=== PATIENT | female | born 1960 | race Caucasian/White ===

== ENCOUNTER 2017-11-19 13:20 | Emergency (ER) | payer OTHER, SELFPAY ==
[2017-11-19 13:29] VITALS: BP 146/91; PULSE 77; RESP 20; TEMP 36.9; O2SAT 96; BMI 30.2
--- NOTE | 2017-11-19 13:31 | RAD_ITS ---
STUDY: X-RAY CHEST REASON FOR EXAM: Female, 57 years old. Cough. Acute onset of chest pain. TECHNIQUE: Single AP portable view of the chest. COMPARISON: Comparison is made with prior study dated September 28, 2015. FINDINGS: EKG electrodes are seen. Hyperinflation. The lungs are clear. There is no demonstrated pleural abnormality. Normal size heart. Normal mediastinum and alma. Normal visualized pulmonary arteries. Normal visualized aortic arch and descending thoracic aorta. Normal visualized thoracic spine. Normal visualized ribs, clavicles, and shoulders. There is no demonstrated abnormality of the visualized soft tissue structures of the upper abdomen. RAD/Chest 1 View (Portable) IMPRESSION: Normal x-ray examination of the chest. Electronically Signed: Josh Wilcox MD at 14:14 EST Tel [phone], Service support ,
--- NOTE | 2017-11-19 13:32 | EKG12_ITS ---
Test Reason : CP Blood Pressure : / mmHG Vent. Rate : 088 BPM Atrial Rate : 088 BPM P-R Int : 150 ms QRS Dur : 082 ms QT Int : 354 ms P-R-T Axes : 068 002 071 degrees QTc Int : 428 ms Normal sinus rhythm Normal ECG Confirmed by NICOLE JACINTO, CIRO ([id number]), assistant film editor LATOSHA DIETRICH ([id number]) on 11/22/2017 11:18:00 AM Referred By: Confirmed By:CIRO RIVERA MD
[2017-11-19 13:47] VITALS: BP 140/92; PULSE 79; RESP 19; O2SAT 94
--- NOTE | 2017-11-19 14:22 | ED.VISSUMM ---
- ER Visit Summary Date of Service: 11/19/17 Chief Complaint: Chest pain 1-1/2 hour prior to presentation History of Present Illness: The patient is a 57 F [place] with midsternal discomfort scribed is sharp tight sensation that started at rest. She has had a cough for 1-1/2 weeks to 2 weeks. She does report increased pain with coughing. She denies any fever, chills night sweats. She denies any ocular, visual auditory symptoms. She denies any orthopnea or PND. She denies abdominal pain, nausea, vomiting or diarrhea. She denies any urologic symptoms. She denies mild arthralgias. She complains of weakness. Physical Examination: Vital signs are marked for slight elevation blood pressure 140/92. HEENT exam is unremarkable. She does have reproducible anterior chest pain left greater than right. No skin lesions are noted. Lungs are clear to auscultation with good mirror bilateral. Heart is regular without murmur, gallop or rub. Abdomen is soft nontender. Surgical scars are noted secondary to appendectomy cholecystectomy. There is no asymmetry, swelling, discoloration, leg vein distention, palpable cords or tenderness along the distribution of the deep venous system. She is alert oriented ?3. Test Results: EKG was ordered per nurse protocol prior to me seeing the patient. The EKG is normal with a rate of 88. Chest x-ray reveals normal cardiac silhouette, mediastinum, lung parenchyma and bony structures. Emergency Department Course and Treatment: Chest x-ray is obtained since she has a cough and pleuritic chest pain. EKG was ordered per nurse protocol. Treatment Plan: She has reproducible pain with a pleuritic component will treat with NSAIDs since there is no contraindication and she has no allergies. Disposition: Discharge to home Impression: 1. Bronchitis 2. Pleuritic chest pain 3. History of COPD 4. History of hypothyroidism 5. History of depression This note was generated with [employer] dictation software. It may contain incorrect words, spelling, and punctuation that were not noted in review of the chart prior to signing ED Disposition - Plan for ED Patient: Disposition: Home or Assisted Living Chief Complaint: Chest Pain Instructions: ED Chest Pain Pleurisy Referrals: Wyatt Carolina MD [Primary Care Provider] - 3-5 Days Additional Instructions: Take 4 Advil every 8 hours or 2 Aleve every 12 hours for the next 3-5 days.
[2017-11-19 14:28] VITALS: BP 126/82; PULSE 72; RESP 13; O2SAT 97
[2017-11-19 14:39] VITALS: BP 125/82; PULSE 71; RESP 16; O2SAT 98
== END 2017-11-19 14:40 | disposition home or self-care (01) ==
PROVIDERS: Emergency Provider Emergency Medicine; Family Provider Family Medicine; PCP Family Medicine
DX: J40 Bronchitis, not specified as acute or chronic (principal); R07.81 Pleurodynia; J44.9 Chronic obstructive pulmonary disease, unspecified; E03.9 Hypothyroidism, unspecified; F32.9 Major depressive disorder, single episode, unspecified; Z72.0 Tobacco use; R03.0 Elevated blood-pressure reading, without diagnosis of hypertension; Z79.899 Other long term (current) drug therapy
CPT/HCPCS: 71045; 93005; 99283

== ENCOUNTER → 2017-12-11 16:26 | Outpatient (CLI) | payer OTHER, SELFPAY ==
--- NOTE | 2017-12-11 16:28 | RAD_ITS ---
STUDY: X-RAY - CERVICAL SPINE REASON FOR EXAM: Female, 57 years old. Pain. Recent fall. Previous surgery. TECHNIQUE: 5 view(s) of the cervical spine were obtained. COMPARISON: None FINDINGS: Normal anterior atlantoaxial articulation. Normal odontoid process. There is straightening of the normal cervical lordosis. There is postsurgical fusion between C5-C6 and C7. There is multilevel degenerative disc disease. There is multi-level endplate spondylosis. There is mild multi-level osseous foraminal stenosis. The soft tissue structures are unremarkable. RAD/Cerv Spine 4 or 5 Views IMPRESSION: No acute abnormality. Degenerative and postsurgical changes. Electronically Signed: Yves Sims MD at 14:39 EST , Service support ,
== END ==
PROVIDERS: Family Provider Family Medicine; PCP Family Medicine; Visit Provider Family Medicine
DX: S13.9XXA Sprain of joints and ligaments of unspecified parts of neck, initial encounter (principal); X58.XXXA Exposure to other specified factors, initial encounter; Y93.9 Activity, unspecified; Y92.9 Unspecified place or not applicable; Y99.9 Unspecified external cause status
CPT/HCPCS: 72050

== ENCOUNTER → 2018-07-09 10:41 | Outpatient (CLI) | payer OTHER, SELFPAY ==
[2018-07-09 13:22] LABS: Absolute Lymphocyte Count 2.98 X10^3/ul (0.83-4.51); Absolute Neutrophil Count 3.3 X10^3/uL (2.0-7.7); Basophil# 0.02 X10^3/uL; Basophil% 0.3 % (0-1); Eosinophil# 0.18 X10^3/uL; Eosinophils% 2.5 % (0-5); Hematocrit 43.9 % (37-47); Hemoglobin 13.9 g/dl (12.0-15.0); Lymphocyte # 2.98 X10^3/ul (4.0); Lymphocyte % 41.6 % (19-41); Mean Corp Hgb Conc 31.7 g/gl (32-36); Mean Corpuscular Volume 91.5 fL (81-99); Mean Platelet Vol. 10.8 fl (6.2-12.0); Monocyte# 0.66 X10^3/uL; Monocyte% 9.2 % (0-10); Neutrophil # 3.32 X10^3/uL (2.7-7.7); Neutrophil % 46.4 % (47-70); Platelet Count 238 K/mm3 (150-450); RBC Distribution Width CV 14.5 % (11.6-14.6); White Blood Count 7.2 K/mm3 (4.4-11.0)
[2018-07-09 13:25] LABS: POSITIVE COUNT NO; POSITIVE DIFFERENTIAL NO; POSITIVE MORPHOLOGY NO
[2018-07-09 13:42] LABS: Erythrocyte Sedimentation Rate 21 mm/hr (0-30)
[2018-07-09 13:44] LABS: AST(SGOT) 31 U/L (15-37); Alanine Aminotransfer ALT/SGPT 37 U/L (13-56); Alkaline Phosphatase 122 U/L (45-117); Anion Gap 8 (5-15); BUN 12 mg/dL (7-18); BUN/Creat Ratio 16.1 RATIO (10-20); CRP 4.34 mg/L (0.0-3.0); Calcium,Total 9.2 mg/dL (8.5-10.1); Chloride 105 mmol/L (98-107); Creatinine, Serum 0.74 mg/dL (0.55-1.02); EST Glomerular Filtration Rate 86 mL/min (>60); Est Glom Filt Rate - Afr Amer 103 mL/min (>60); Ferritin 68 ng/mL (8-252); Globulin 3.9 g/dL (2.2-4.2); Glucose 91 mg/dL (74-106); Magnesium 2.3 mg/dL (1.6-2.6); Potassium 4.4 mmol/L (3.5-5.1); Protein, Total 7.9 g/dL (6.4-8.2); Sodium Level 139 mmol/L (136-145); T4 Free Direct 0.84 ng/dL (0.76-1.46)
[2018-07-10 10:26] LABS: Free T3 2.3 pg/mL (2.18-3.98)
== END ==
PROVIDERS: Family Provider Family Medicine; PCP Family Medicine; Visit Provider Family Medicine
DX: E03.9 Hypothyroidism, unspecified (principal); G25.81 Restless legs syndrome
CPT/HCPCS: 36415; 80053; 82728; 83735; 84439; 84443; 84481; 85025; 85652; 86140

== ENCOUNTER → 2018-08-07 15:48 | Outpatient (CLI) | payer OTHER, SELFPAY ==
[2018-08-07 18:05] LABS: Free T3 2.5 pg/mL (2.18-3.98); T4 Free Direct 1.54 ng/dL (0.76-1.46); Thyroid Stim Hormone (TSH) 2.06 uIU/mL (0.358-3.74)
== END ==
PROVIDERS: Family Provider Family Medicine; PCP Family Medicine; Visit Provider Family Medicine
DX: E03.9 Hypothyroidism, unspecified (principal)
CPT/HCPCS: 36415; 84439; 84443; 84481

== ENCOUNTER → 2019-02-12 12:42 | Outpatient (CLI) | payer OTHER, SELFPAY ==
--- NOTE | 2019-02-12 12:44 | BI_ITS ---
MAMMOGRAPHY - BILATERAL SCREENING 3-D TOMOSYNTHESIS REASON FOR EXAM: Female, 58 years old. Bilateral Screening 3-D tomosynthesis PERTINENT HISTORY: No significant family history. TECHNIQUE: 2-D mammograms and 3-D Tomosynthesis of the breast (s) were performed. CAD was performed. COMPARISON: September 09, 2013. FINDINGS: The breast composition is heterogeneously dense. Scattered benign calcifications are seen. No dense spiculated masses or suspicious microcalcifications are identified. No architectural distortion is identified. There is no skin thickening or retraction. There has been no significant change since the prior study. BI/SCREENING MAMM (CAD), BILAT IMPRESSION: No mammographic signs of malignancy. Routine yearly mammograms recommended. ASSESSMENT CATEGORY: BIRADS Category 1: Negative. A letter regarding these results will be sent to the patient by the facility within 30 days. FOLLOW UP RECOMMENDATION: Yearly follow up mammogram recommended. (A) Approximately 10% of breast cancers are not detected by mammography. A normal mammogram should not delay biopsy of a clinically suspicious abnormality. Electronically Signed: Lencho Tafoya MD at 15:13 EDT , Service support ,
== END ==
PROVIDERS: Family Provider Family Medicine; PCP Family Medicine; Visit Provider Family Medicine
DX: Z12.31 Encounter for screening mammogram for malignant neoplasm of breast (principal)
CPT/HCPCS: 77063; 77067

== ENCOUNTER → 2019-03-18 10:05 | Outpatient (CLI) | payer OTHER, SELFPAY ==
--- NOTE | 2019-03-18 10:10 | BD_ITS ---
STUDY: DUAL ENERGY X-RAY ABSORPTIOMETRY / DXA REASON FOR EXAM: Female, 58 years old. The patient is postmenopausal. Loss of height. TECHNIQUE: Bone Mineral Density (BMD) measurements of lumbar spine and bilateral hips were obtained. COMPARISON: None. FINDINGS: Lumbar Spine (L1-L4): g/cm2 (1.165) / T-score (0.0) / Z-score (1.0) Findings are suggestive of normal bone density with a low fracture risk. Left Femur Total: g/cm2 (1.039) / T-score (0.3) / Z-score (1.0) Left Femoral Neck: g/cm2 (0.957) / T-score (-0.6) / Z-score (0.5) Right Femur Total: g/cm2 (1.075) / T-score (0.5) / Z-score (1.3) Right Femoral Neck: g/cm2 (0.932) / T-score (-0.8) / Z-score (0.4) BD/Dexa Bone Density Study IMPRESSION: The patient is considered normal as outlined below according to World Haja Organization (WHO) criteria with a low fracture risk. Reference Information: The T-score is the number of standard deviations above or below the standard which is normal for young adults at their peak bone mineral density. The World Health Organization (WHO) interprets the T-scores as follows: Above -1 Normal bone density Between -1 and -2.5 Osteopenia Equal to / or below -2.5 Osteoporosis As a practical clinical guideline, osteopenia may be graded as follows: Mild -1 through -1.5 Moderate -1.6 through -2.0 Severe -2.1 through -2.4 The Z-score is the number of standard deviations above or below age-matched controls. A Z-score of less than -1.5 would be considered abnormal. References: 1. NIH Osteoporosis and Related Bone Diseases http://www.osteo.org 2. International Society for Clinical Densitometry http://www.iscd.org 3. National Osteoporosis Foundation http://www.nof.org Electronically Signed: Josh Wilcox, at 11:30 EDT , Service support ,
== END ==
PROVIDERS: Family Provider Family Medicine; PCP Family Medicine; Referring Provider Nurse Practitioner Adult Health; Visit Provider Nurse Practitioner Adult Health
DX: Z78.0 Asymptomatic menopausal state (principal)
CPT/HCPCS: 77080

== ENCOUNTER → 2019-05-14 09:20 | Outpatient (CLI) | payer OTHER, SELFPAY ==
[2019-05-14 10:26] LABS: Absolute Lymphocyte Count 2.96 X10^3/uL (0.83-4.51); Absolute Neutrophil Count 3.7 X10^3/uL (2.0-7.7); Basophil# 0.03 X10^3/uL; Basophil% 0.4 % (0-1); Eosinophil# 0.17 X10^3/uL; Eosinophils% 2.2 % (0-5); Hematocrit 44.9 % (37-47); Hemoglobin 14.5 g/dL (12.0-15.0); Lymphocyte # 2.96 X10^3/ul (4.0); Lymphocyte % 39.1 % (19-41); Mean Corp Hgb Conc 32.3 g/dL (32-36); Mean Corpuscular Hgb 29.2 pg (27.0-32.0); Mean Corpuscular Volume 90.3 fL (81-99); Monocyte# 0.68 X10^3/uL; NRBC Flagged by Analyzer 0 % (0-5); Neutrophil # 3.72 X10^3/uL (2.7-7.7); Platelet Count 250 K/mm3 (150-450); RBC Distribution Width CV 14.1 % (11.6-14.6); RBC Distribution Width SD 46.9 fl (35.1-43.9); Red Blood Count 4.97 M/mm3 (4.2-5.4); White Blood Count 7.6 K/mm3 (4.4-11.0)
[2019-05-14 11:04] LABS: ALB/GLOB Ratio 1.4 RATIO (0.9-2.4); AST(SGOT) 22 U/L (15-37); Alanine Aminotransfer ALT/SGPT 30 U/L (13-56); Albumin, Serum 4.3 g/dL (3.2-5.0); Alkaline Phosphatase 119 U/L (45-117); Anion Gap 7 (5-15); BUN 13 mg/dL (7-18); BUN/Creat Ratio 19.1 RATIO (10-20); Calcium,Total 9.3 mg/dL (8.5-10.1); Chloride 105 mmol/L (98-107); Creatinine, Serum 0.68 mg/dL (0.55-1.02); EST Glomerular Filtration Rate 95 mL/min (>60); Est Glom Filt Rate - Afr Amer 115 mL/min (>60); Globulin 3.1 g/dL (2.2-4.2); Glucose 96 mg/dL (74-106); Potassium 4.5 mmol/L (3.5-5.1); Protein, Total 7.4 g/dL (6.4-8.2); Sodium Level 138 mmol/L (136-145); T4 Free Direct 1.13 ng/dL (0.76-1.46); Thyroid Stim Hormone (TSH) 4.46 uIU/mL (0.358-3.74)
== END ==
PROVIDERS: Family Provider Family Medicine; PCP Family Medicine; Referring Provider Family Medicine; Visit Provider Family Medicine
DX: M79.7 Fibromyalgia (principal); E03.9 Hypothyroidism, unspecified
CPT/HCPCS: 36415; 80053; 84439; 84443; 85025

== ENCOUNTER → 2020-09-21 13:00 | Outpatient (CLI) | payer OTHER, SELFPAY | PROVIDERS: PCP Family Medicine; Referring Provider Surgery; Visit Provider Surgery | DX: Z01.812 Encounter for preprocedural laboratory examination (principal); Z20.828 Contact with and (suspected) exposure to other viral communicable diseases | CPT/HCPCS: 87426; C9803 ==

== ENCOUNTER → 2021-06-17 11:43 | Outpatient (CLI) | payer OTHER, SELFPAY ==
[2021-06-17 15:22] LABS: Absolute Lymphocyte Count 2.96 X10^3/uL (0.83-4.51); Basophil# 0.03 X10^3/uL; Basophil% 0.4 % (0-1); Eosinophil# 0.17 X10^3/uL; Eosinophils% 2.5 % (0-5); Hematocrit 46.7 % (37-47); Hemoglobin 14.7 g/dL (12.0-15.0); Lymphocyte # 2.96 X10^3/ul (0.83-4.51); Lymphocyte % 43.3 % (19-41); Mean Corp Hgb Conc 31.5 g/dL (32-36); Mean Corpuscular Hgb 28.7 pg (27.0-32.0); Mean Platelet Vol. 11.2 fl (6.2-12.0); Monocyte# 0.62 X10^3/uL; Monocyte% 9.1 % (0-10); NRBC Flagged by Analyzer 0 % (0-5); Neutrophil # 3.03 X10^3/uL (2.7-7.7); Neutrophil % 44.4 % (47-70); Platelet Count 261 K/mm3 (150-450); RBC Distribution Width CV 13.1 % (11.6-14.6); RBC Distribution Width SD 44.4 fl (35.1-43.9); Red Blood Count 5.13 M/mm3 (4.2-5.4); White Blood Count 6.8 K/mm3 (4.4-11.0)
[2021-06-17 16:15] LABS: ALB/GLOB Ratio 1.2 RATIO (0.9-2.4); AST(SGOT) 23 U/L (15-37); Alanine Aminotransfer ALT/SGPT 38 U/L (13-56); Albumin, Serum 4.1 g/dL (3.2-5.0); Alkaline Phosphatase 134 U/L (45-117); Anion Gap 6 (5-15); BUN 13 mg/dL (7-18); Chloride 107 mmol/L (98-107); Cholesterol 281 mg/dL (200); Creatinine, Serum 0.68 mg/dL (0.55-1.02); EST Glomerular Filtration Rate 93 mL/min (>60); Est Glom Filt Rate - Afr Amer 113 mL/min (>60); Globulin 3.3 g/dL (2.2-4.2); Glucose 104 mg/dL (74-106); High Density Lipoprotein 57 mg/dL; Potassium 4.1 mmol/L (3.5-5.1); Protein, Total 7.4 g/dL (6.4-8.2); Sodium Level 139 mmol/L (136-145); Thyroid Stim Hormone (TSH) 0.01 uIU/mL (0.358-3.74); Triglycerides 138 mg/dL; Very Low Density Lipoprotein 28 mg/dL (5-40)
== END ==
PROVIDERS: PCP Internal Medicine; Referring Provider Internal Medicine; Visit Provider Internal Medicine
DX: E03.9 Hypothyroidism, unspecified (principal)
CPT/HCPCS: 36415; 80053; 80061; 84443; 85025

== ENCOUNTER 2021-11-28 11:58 | Outpatient (CLI) | payer OTHER, SELFPAY ==
--- NOTE | 2021-11-28 12:01 | BI_ITS ---
MAMMOGRAPHY - BILATERAL SCREENING REASON FOR EXAM: Female, 61 years old. Routine annual screening examination. PERTINENT HISTORY: Aunt with breast cancer. TECHNIQUE: Digital bilateral breast marie (3D mammographic acquisition) in the CC and MLO projections. 2-D mediolateral oblique (MLO) and craniocaudad (CC) views of both breasts were obtained. CAD: Full Field Digital Mammography with Computer Added Detection was performed. COMPARISON: Comparison is made with prior study dated 02/12/2019 and 09/09/2013. FINDINGS: Breast Composition: There are scattered areas of fibroglandular density. There are no dominant masses or suspicious calcifications. No other significant abnormalities are identified. There has been no significant change since the prior study. BI/SCRN MAMM (CAD)W/MARIE BILAT IMPRESSION: Stable bilateral screening mammogram. Yearly follow-up mammogram recommended. (A) ASSESSMENT CATEGORY: BIRADS Category 1: Negative. A letter regarding these results will be sent to the patient by the facility within 30 days. Approximately 10% of breast cancers are not detected by mammography. A normal mammogram should not delay biopsy of a clinically suspicious abnormality. [id number] Electronically Signed: Josh Wilcox MD at 14:39 EST ,
[2021-12-02 20:44] LABS: HPV APTIMA, High Risk Positive (Negative)
== END 2021-11-28 23:59 | disposition home or self-care (01) ==
PROVIDERS: PCP Internal Medicine; Referring Provider Obstetrics & Gynecology; Visit Provider Obstetrics & Gynecology
DX: Z12.31 Encounter for screening mammogram for malignant neoplasm of breast (principal); Z12.4 Encounter for screening for malignant neoplasm of cervix
CPT/HCPCS: 77063; 77067; 87624; 88175; G0145

== ENCOUNTER 2021-12-16 14:17 | Outpatient (CLI) | payer OTHER, SELFPAY ==
[2021-12-16 16:10] LABS: Cholesterol 286 mg/dL (200); High Density Lipoprotein 60 mg/dL; Thyroid Stim Hormone (TSH) 1.24 uIU/mL (0.358-3.74); Triglycerides 125 mg/dL; Very Low Density Lipoprotein 25 mg/dL (5-40)
== END 2021-12-16 23:59 | disposition home or self-care (01) ==
PROVIDERS: PCP Internal Medicine; Referring Provider Internal Medicine; Visit Provider Internal Medicine
DX: E78.5 Hyperlipidemia, unspecified (principal); E03.9 Hypothyroidism, unspecified
CPT/HCPCS: 36415; 80061; 84443

== ENCOUNTER → 2022-11-03 | Outpatient (CLI) | payer OTHER, SELFPAY ==
[2022-11-03 12:29] LABS: Absolute Lymphocyte Count 3.08 X10^3/uL (0.83-4.51); Basophil# 0.04 X10^3/uL; Basophil% 0.4 % (0-1); Eosinophil# 0.24 X10^3/uL; Eosinophils% 2.6 % (0-5); Hematocrit 43.3 % (37-47); Hemoglobin 13.7 g/dL (12.0-15.0); Lymphocyte # 3.08 X10^3/ul (0.83-4.51); Lymphocyte % 33.7 % (19-41); Mean Corp Hgb Conc 31.6 g/dL (32-36); Mean Corpuscular Hgb 29.3 pg (27.0-32.0); Mean Corpuscular Volume 92.7 fL (81-99); Mean Platelet Vol. 11.1 fl (6.2-12.0); Monocyte# 0.74 X10^3/uL; Monocyte% 8.1 % (0-10); NRBC Flagged by Analyzer 0 % (0-5); Neutrophil # 5.01 X10^3/uL (2.7-7.7); Platelet Count 283 K/mm3 (150-450); RBC Distribution Width SD 51.6 fl (35.1-43.9); Red Blood Count 4.67 M/mm3 (4.2-5.4); White Blood Count 9.1 K/mm3 (4.4-11.0)
[2022-11-03 12:47] LABS: ALB/GLOB Ratio 1.2 RATIO (0.9-2.4); AST(SGOT) 19 U/L (15-37); Alanine Aminotransfer ALT/SGPT 27 U/L (13-56); Alkaline Phosphatase 101 U/L (45-117); Anion Gap 4 (5-15); BUN 18 mg/dL (7-18); BUN/Creat Ratio 23.2 RATIO (10-20); Chloride 112 mmol/L (98-107); Cholesterol 336 mg/dL (200); Creatinine, Serum 0.78 mg/dL (0.55-1.02); EST Glomerular Filtration Rate 80 mL/min (>60); Est Glom Filt Rate - Afr Amer 97 mL/min (>60); Globulin 3.4 g/dL (2.2-4.2); Glucose 107 mg/dL (74-106); High Density Lipoprotein 61 mg/dL; Potassium 4.1 mmol/L (3.5-5.1); Protein, Total 7.4 g/dL (6.4-8.2); Sodium Level 139 mmol/L (136-145); Triglycerides 179 mg/dL; Very Low Density Lipoprotein 36 mg/dL (5-40)
== END | disposition home or self-care (01) ==
PROVIDERS: PCP Internal Medicine; Referring Provider Internal Medicine; Visit Provider Internal Medicine
DX: E78.2 Mixed hyperlipidemia (principal); E03.9 Hypothyroidism, unspecified
CPT/HCPCS: 36415; 80053; 80061; 84443; 85025

== ENCOUNTER → 2022-11-21 | Outpatient (CLI) | payer OTHER, SELFPAY ==
--- NOTE | 2022-11-21 12:00 | EKG12_ITS ---
Test Reason : PRE OP Blood Pressure : / mmHG Vent. Rate : 077 BPM Atrial Rate : 077 BPM P-R Int : 142 ms QRS Dur : 086 ms QT Int : 372 ms P-R-T Axes : -01 016 055 degrees QTc Int : 420 ms Normal sinus rhythm Normal ECG Confirmed by ZBIGNIEW JACINTO, JAGDISH ([id number]), pictures editor LEILANI MANUEL ([id number]) on 11/23/2022 10:19:43 AM Referred By: Jb Oneill Confirmed By:JAGDISH COY MD
== END | disposition home or self-care (01) ==
LOC: PSN 12:07
PROVIDERS: PCP Internal Medicine; Referring Provider Internal Medicine; Visit Provider Internal Medicine
DX: I10 Essential (primary) hypertension (principal)
CPT/HCPCS: 93005

== ENCOUNTER → 2022-12-06 | Outpatient (CLI) | payer OTHER, SELFPAY ==
[2022-12-06 16:33] LABS: ALB/GLOB Ratio 1.5 RATIO (0.9-2.4); AST(SGOT) 18 U/L (15-37); Alanine Aminotransfer ALT/SGPT 26 U/L (13-56); Albumin, Serum 4.1 g/dL (3.2-5.0); Alkaline Phosphatase 105 U/L (45-117); Anion Gap 7 (5-15); BUN 16 mg/dL (7-18); BUN/Creat Ratio 25.9 RATIO (10-20); Calcium,Total 8.8 mg/dL (8.5-10.1); Chloride 107 mmol/L (98-107); Creatinine, Serum 0.62 mg/dL (0.55-1.02); EST Glomerular Filtration Rate 104 mL/min (>60); Est Glom Filt Rate - Afr Amer 126 mL/min (>60); Globulin 2.8 g/dL (2.2-4.2); Glucose 106 mg/dL (74-106); Protein, Total 6.9 g/dL (6.4-8.2); Sodium Level 142 mmol/L (136-145); Thyroid Stim Hormone (TSH) 0.19 uIU/mL (0.358-3.74)
== END | disposition home or self-care (01) ==
PROVIDERS: PCP Internal Medicine; Referring Provider Internal Medicine; Visit Provider Internal Medicine
DX: E78.5 Hyperlipidemia, unspecified (principal); E03.9 Hypothyroidism, unspecified
CPT/HCPCS: 36415; 80053; 84443

== ENCOUNTER → 2022-12-21 | Outpatient (CLI) | payer OTHER, SELFPAY ==
[2022-12-29 14:15] LABS: HPV APTIMA, High Risk Negative (Negative)
== END | disposition home or self-care (01) ==
PROVIDERS: PCP Internal Medicine; Referring Provider Obstetrics & Gynecology; Visit Provider Obstetrics & Gynecology
DX: Z12.4 Encounter for screening for malignant neoplasm of cervix (principal)
CPT/HCPCS: 87624; 88175; G0145

== ENCOUNTER → 2023-01-26 | Outpatient (CLI) | payer OTHER, SELFPAY ==
[2023-01-26 13:46] LABS: ALB/GLOB Ratio 1.4 RATIO (0.9-2.4); AST(SGOT) 23 U/L (15-37); Alanine Aminotransfer ALT/SGPT 32 U/L (13-56); Albumin, Serum 4.1 g/dL (3.2-5.0); Alkaline Phosphatase 128 U/L (45-117); Anion Gap 8 (5-15); BUN 16 mg/dL (7-18); BUN/Creat Ratio 21.9 RATIO (10-20); Calcium,Total 9.4 mg/dL (8.5-10.1); Chloride 106 mmol/L (98-107); Cholesterol 194 mg/dL (200); Creatinine, Serum 0.73 mg/dL (0.55-1.02); EST Glomerular Filtration Rate 86 mL/min (>60); Est Glom Filt Rate - Afr Amer 104 mL/min (>60); Glucose 97 mg/dL (74-106); High Density Lipoprotein 59 mg/dL; Potassium 4.3 mmol/L (3.5-5.1); Protein, Total 7.1 g/dL (6.4-8.2); Sodium Level 139 mmol/L (136-145); Thyroid Stim Hormone (TSH) 0.05 uIU/mL (0.358-3.74); Triglycerides 126 mg/dL; Very Low Density Lipoprotein 25 mg/dL (5-40)
== END | disposition home or self-care (01) ==
LOC: BIMLAB 11:45
PROVIDERS: PCP Internal Medicine; Referring Provider Internal Medicine; Visit Provider Internal Medicine
DX: E78.5 Hyperlipidemia, unspecified (principal); E03.9 Hypothyroidism, unspecified
CPT/HCPCS: 36415; 80053; 80061; 84443

== ENCOUNTER → 2023-05-28 | Outpatient (CLI) | payer OTHER, SELFPAY ==
[2023-05-28 13:11] LABS: ALB/GLOB Ratio 1.4 RATIO (0.9-2.4); AST(SGOT) 20 U/L (15-37); Alanine Aminotransfer ALT/SGPT 33 U/L (13-56); Alkaline Phosphatase 118 U/L (45-117); Anion Gap 4 (5-15); BUN 12 mg/dL (7-18); BUN/Creat Ratio 18.7 RATIO (10-20); Calcium,Total 9.2 mg/dL (8.5-10.1); Chloride 108 mmol/L (98-107); Creatinine, Serum 0.64 mg/dL (0.55-1.02); EST Glomerular Filtration Rate 100 mL/min (>60); Est Glom Filt Rate - Afr Amer 120 mL/min (>60); Globulin 2.9 g/dL (2.2-4.2); Glucose 111 mg/dL (74-106); Potassium 4.1 mmol/L (3.5-5.1); Protein, Total 6.9 g/dL (6.4-8.2); Sodium Level 140 mmol/L (136-145); Thyroid Stim Hormone (TSH) 1.81 uIU/mL (0.358-3.74)
== END | disposition home or self-care (01) ==
LOC: BIMLAB 11:40
PROVIDERS: PCP Internal Medicine; Referring Provider Internal Medicine; Visit Provider Internal Medicine
DX: E03.9 Hypothyroidism, unspecified (principal)
CPT/HCPCS: 36415; 80053; 84443

== ENCOUNTER → 2024-03-25 | Outpatient (CLI) | payer OTHER, SELFPAY ==
[2024-03-25 18:03] LABS: Absolute Lymphocyte Count 3.94 X10^3/uL (0.83-4.51); Basophil# 0.05 X10^3/uL; Basophil% 0.6 % (0-1); Eosinophils% 2.2 % (0-5); Hematocrit 42.5 % (37-47); Hemoglobin 13.4 g/dL (12.0-15.0); Lymphocyte # 3.94 X10^3/ul (0.83-4.51); Lymphocyte % 44.1 % (19-41); Mean Corp Hgb Conc 31.5 g/dL (32-36); Mean Platelet Vol. 11.1 fl (6.2-12.0); Monocyte# 0.75 X10^3/uL; Monocyte% 8.4 % (0-10); NRBC Flagged by Analyzer 0 % (0-5); Neutrophil # 3.97 X10^3/uL (2.7-7.7); Neutrophil % 44.4 % (47-70); Platelet Count 247 K/mm3 (150-450); RBC Distribution Width CV 13.3 % (11.6-14.6); Red Blood Count 4.62 M/mm3 (4.2-5.4); White Blood Count 8.9 K/mm3 (4.4-11.0)
[2024-03-25 18:40] LABS: ALB/GLOB Ratio 1.2 RATIO (0.9-2.4); AST(SGOT) 24 U/L (15-37); Alanine Aminotransfer ALT/SGPT 33 U/L (13-56); Albumin, Serum 4.1 g/dL (3.2-5.0); Alkaline Phosphatase 130 U/L (45-117); Anion Gap 6 (5-15); BUN 13 mg/dL (7-18); BUN/Creat Ratio 18.4 RATIO (10-20); Calcium,Total 9.3 mg/dL (8.5-10.1); Chloride 106 mmol/L (98-107); Creatinine, Serum 0.71 mg/dL (0.55-1.02); EST Glomerular Filtration Rate 89 mL/min (>60); Est Glom Filt Rate - Afr Amer 108 mL/min (>60); Estradiol 15.1 pg/mL; Free T3 2.3 pg/mL (2.18-3.98); Globulin 3.3 g/dL (2.2-4.2); Glucose 90 mg/dL (74-106); Potassium 3.9 mmol/L (3.5-5.1); Protein, Total 7.4 g/dL (6.4-8.2); Sodium Level 137 mmol/L (136-145); T4 Free Direct 1.14 ng/dL (0.76-1.46); Thyroid Stim Hormone (TSH) 6.79 uIU/mL (0.358-3.74)
[2024-03-27 04:08] LABS: PROGESTERONE 0.2 ng/mL (.)
[2024-03-31 13:07] LABS: Testosterone, % Free 1.64 % (0.50-2.80); Testosterone, Free 0.05 ng/dL (0.10-0.85); Testosterone, Total 3 ng/dL (3-67)
== END | disposition home or self-care (01) ==
LOC: MTLAB 15:06
PROVIDERS: PCP Family Medicine; Referring Provider Family Medicine; Visit Provider Family Medicine
DX: E03.9 Hypothyroidism, unspecified (principal); R53.83 Other fatigue; E55.9 Vitamin D deficiency, unspecified; Z51.81 Encounter for therapeutic drug level monitoring
CPT/HCPCS: 36415; 80053; 82306; 82670; 84144; 84402; 84403; 84439; 84443; 84481; 85025

== ENCOUNTER → 2024-10-27 | Outpatient (CLI) | payer OTHER, SELFPAY ==
--- NOTE | 2024-10-27 13:50 | BI_ITS ---
MAMMOGRAPHY - BILATERAL SCREENING REASON FOR EXAM: Female, 64 years old. Routine annual screening examination. PERTINENT HISTORY: Aunt with breast cancer. TECHNIQUE: Digital bilateral breast marie (3D mammographic acquisition) in the CC and MLO projections. 2-D mediolateral oblique (MLO) and craniocaudad (CC) views of both breasts were obtained. CAD: Full Field Digital Mammography with Computer Added Detection was performed. COMPARISON: Comparison is made with prior study dated November 28, 2021 and February 12, 2019. FINDINGS: Breast Composition: There are scattered areas of fibroglandular density. There are no dominant masses or suspicious calcifications. No other significant abnormalities are identified. There has been no significant change since the prior study. BI/SCRN MAMM (CAD)W/MARIE BILAT IMPRESSION: Stable bilateral screening mammogram. Yearly follow-up mammogram recommended. (A) ASSESSMENT CATEGORY: BIRADS Category 1: Negative. A letter regarding these results will be sent to the patient by the facility within 30 days. Approximately 10% of breast cancers are not detected by mammography. A normal mammogram should not delay biopsy of a clinically suspicious abnormality. [id number] Electronically Signed: Josh Wilcox MD at 10:35 EST ,
== END | disposition home or self-care (01) ==
PROVIDERS: PCP Family Medicine; Referring Provider Family Medicine; Visit Provider Family Medicine
DX: Z12.31 Encounter for screening mammogram for malignant neoplasm of breast (principal)
CPT/HCPCS: 77063; 77067

== ENCOUNTER → 2025-03-30 | Outpatient (CLI) | payer BC, SELFPAY ==
[2025-03-30 15:46] LABS: Absolute Lymphocyte Count 3.49 X10^3/uL (0.83-4.51); Absolute Neutrophil Count 4.1 X10^3/uL (2.0-7.7); Basophil# 0.05 X10^3/uL; Basophil% 0.6 % (0-1); Eosinophil# 0.31 X10^3/uL; Eosinophils% 3.5 % (0-5); Hematocrit 39.4 % (37-47); Hemoglobin 13.1 g/dL (12.0-15.0); Lymphocyte # 3.49 X10^3/ul (0.83-4.51); Lymphocyte % 39.2 % (19-41); Mean Corp Hgb Conc 33.2 g/dL (32-36); Mean Corpuscular Hgb 29.6 pg (27.0-32.0); Mean Corpuscular Volume 88.9 fL (81-99); Mean Platelet Vol. 11.5 fl (6.2-12.0); Monocyte# 0.95 X10^3/uL; Monocyte% 10.7 % (0-10); NRBC Flagged by Analyzer 0 % (0-5); Neutrophil # 4.06 X10^3/uL (2.7-7.7); Neutrophil % 45.6 % (47-70); Platelet Count 253 K/mm3 (150-450); RBC Distribution Width CV 13.2 % (11.6-14.6); Red Blood Count 4.43 M/mm3 (4.2-5.4); White Blood Count 8.9 K/mm3 (4.4-11.0)
[2025-03-30 15:48] LABS: Erythrocyte Sedimentation Rate 6 mm/hr (0-30)
[2025-03-30 16:07] LABS: ALB/GLOB Ratio 1.8 RATIO (0.9-2.4); AST(SGOT) 25 U/L (<=31); Alanine Aminotransfer ALT/SGPT 24 U/L (<=34); Albumin, Serum 4.4 g/dL (3.4-4.8); Alkaline Phosphatase 124 U/L (35-104); Anion Gap 11 (5-15); BUN 12 mg/dL (4-19); BUN/Creat Ratio 17.5 RATIO (10-20); Calcium,Total 9.5 mg/dL (7.6-11.0); Carbon Dioxide 24.1 mmol/L (21.0-32.0); Chloride 106 mmol/L (98-108); Creatinine, Serum 0.67 mg/dL (0.70-1.20); EST Glomerular Filtration Rate 98 (>60); Free T3 2.8 pg/mL (2.18-3.98); Globulin 2.4 g/dL (2.2-4.2); Glucose 106 mg/dL (70-99); Protein, Total 6.7 g/dL (5.9-8.4); Sodium Level 142 mmol/L (133-145); Thyroid Stim Hormone (TSH) 0.528 uIU/mL (0.300-4.200); Total Bilirubin 0.19 mg/dL (0.00-1.30); Vitamin D,25 Hydroxy 31.3 ng/mL (30-100)
[2025-03-30 16:08] LABS: CRP < 3.00 mg/L (0.0-3.0)
--- OUTSIDE RECORDS SUMMARY | 2025-03-30 22:59 | XMS RPT_ITS | CCD ---
Author Organization [facility] Care Team Providers Care Hand Tool Lapper Name Role Phone Dr. Jb Oneill Primary Care Provider [phone] Dr. Jb Oneill Attending Provider [phone] Jb Oneill Referring Provider [phone] Malys, Gayathri Primary Care Unavailable Skruck, Anat Attending Unavailable Malys, Gayathri Primary Care Unavailable Skruck, Anat Attending Unavailable Malys, Gayathri Primary Care Unavailable Skruck, Anat Attending Unavailable Malys, Gayathri Primary Care Unavailable SeeseMerrick L Attending Unavailable Malys, Gayathri Primary Care Unavailable Skruck, Anat Attending Unavailable Malys, Gayathri Primary Care Unavailable Skruck, Anat Attending Unavailable Malys, Gayathri Primary Care Unavailable Seese Merrick L Attending Unavailable Malys, Gayathri Primary Care Unavailable Skruck, Anat Attending Unavailable Malys, Gayathri Primary Care Unavailable Skruck, Anat Attending Unavailable Malys, Gayathri Primary Care Unavailable Seese Merrick L Attending Unavailable Malys, Gayathri Primary Care Unavailable Skruck, Anat Attending Unavailable Malys, Gayathri Primary Care Unavailable Seese, Merrick L Attending Unavailable Malys, Gayathri Primary Care Unavailable Skruck, Anat Attending Unavailable Malys, Gayathri Primary Care Unavailable Seese, Merrick L Attending Unavailable Malys, Gayathri Primary Care Unavailable Seese, Merrick L Attending Unavailable Malys, Gayathri Primary Care Unavailable Skruck, Anat Attending Unavailable Malys, Gayathri Primary Care Unavailable Skruck, Anat Attending Unavailable Malys, Gayathri Primary Care Unavailable Malys, Gayathri Attending Unavailable Malys, Gayathri Referring Unavailable Malys, Gayathri Primary Care Unavailable Malys, Gayathri Attending Unavailable Malys, Gayathri Referring Unavailable Malys, Gayathri Primary Care Unavailable Anat Hendrickson Attending Unavailable Allergies Allergy Classification Reported Allergen(s) Allergy Type Date of Onset Reaction(s) Facility (1 source) Sulfonamides (Antibiotic) Allergy to substance 3 [facility] (1 source) Sulfonamides (Antibiotic) Drug allergy (disorder) 5 [facility] Medications Current Medications Medication Drug Class(es) Dates Sig (Normalized) Sig (Original) [id number] 200 actuat albuterol 0.09 mg/actuat metered dose inhaler (3 sources) beta2-Adrenergic Agonist Start: 11-09-2021 End: 08-22-2022 Albuterol Sulfate (Ventolin Hfa) 90 mcg/actuation HFA aerosol inhaler Active 2 PUFF INHALATION NEEDED 8.5 August 22, 2022 4:16pm Start: 11-19-2017 End: 11-09-2021 Albuterol Sulfate (Ventolin Hfa) 18 GM HFA aerosol inhaler Discontinued 2 PUFF IH NEEDED November 19, 2017 12:00am November 09, 2021 2:06pm amLODIPine 5 mg oral tablet (1 source) Dihydropyridine Calcium Channel Estee Start: 11-09-2022 take 5 mg by mouth once daily Amlodipine Active 5 MG PO DAILY 60 November 09, 2022 12:00am atorvastatin 10 mg oral tablet (1 source) HMG-CoA Reductase Inhibitor Start: 11-03-2022 take 1 tablet by mouth once daily Atorvastatin (Lipitor) 10 mg tablet Active 10 MG PO DAILY November 03, 2022 12:00am levocetirizine dihydrochloride 5 mg oral tablet (2 sources) Histamine-1 Receptor Antagonist Start: 11-03-2022 take 1 tablet by mouth once daily in the evening Levocetirizine (Xyzal) 5 mg tablet Active 5 MG PO EVERY EVENING November 03, 2022 12:00am Start: 10-06-2016 End: 11-28-2021 take 1 tablet by mouth once daily Levocetirizine Dihydrochloride (Xyzal) 5 MG tablet Discontinued 5 MG PO DAILY October 06, 2016 12:00am November 28, 2021 11:24am levothyroxine sodium 0.137 mg oral tablet (5 sources) l-Thyroxine Start: 06-17-2021 End: 01-20-2022 take 137 ug by mouth once daily Levothyroxine Active 137 MCG PO DAILY 60 January 20, 2022 2:35pm Start: 06-17-2021 End: 06-17-2021 take 150 ug by mouth once daily Levothyroxine Discontinued 150 MCG PO DAILY June 16, 2021 11:00pm June 17, 2021 3:39pm Start: 10-06-2016 End: 06-17-2021 take 150 ug by mouth once daily Levothyroxine Discontinued 150 MCG PO DAILY October 06, 2016 12:00am June 17, 2021 10:10am montelukast 10 mg oral tablet (1 source) Leukotriene Receptor Antagonist Start: 10-06-2016 take 10 mg by mouth once daily Montelukast Active 10 MG PO DAILY October 06, 2016 12:00am red yeast rice 600 mg oral capsule (1 source) Start: 11-03-2022 take 1200 mg by mouth once daily Red Yeast Rice Active 1200 MG PO DAILY November 03, 2022 12:00am give with meal/snack 24 hr venlafaxine 150 mg extended release oral capsule (4 sources) Serotonin and Norepinephrine Reuptake Inhibitor Start: 11-09-2021 End: 11-09-2021 take 1 capsule by mouth once daily Venlafaxine Xr (Effexor Xr) 150 mg capsule Discontinued 150 MG PO DAILY November 09, 2021 2:26pm November 09, 2021 2:40pm Start: 11-09-2021 End: 11-13-2022 take 150 mg by mouth once daily Venlafaxine Active 150 MG PO DAILY November 13, 2022 9:15am Start: 10-06-2016 End: 11-09-2021 take 2 capsules by mouth once daily Venlafaxine Xr (Effexor Xr) 75 MG capsule Discontinued 150 MG PO DAILY October 06, 2016 12:00am November 09, 2021 2:27pm Completed/Discontinued Medications Medication Drug Class(es) Dates Sig (Normalized) Sig (Original) amoxicillin 875 mg oral tablet (2 sources) Penicillin-class Antibacterial Start: 01-17-2022 End: 01-27-2022 take 875 mg by mouth twice daily Amoxicillin Discontinued 875 MG PO TWICE A DAY 10 08January 17, 2022 5:20pm January 26, 2022 11:04pm Start: 10-29-2021 End: 11-08-2021 take 875 mg by mouth twice daily Amoxicillin Discontinued 875 MG PO TWICE A DAY 10 08October 29, 2021 12:00am November 08, 2021 12:01am fluticasone propionate 0.05 mg/actuat metered dose nasal spray (1 source) Corticosteroid Start: 10-06-2016 End: 11-28-2021 Fluticasone Propionate Discontinued 1 SPRAY NASAL DAILY October 06, 2016 12:00am November 28, 2021 11:23am hydrOXYzine hydrochloride 10 mg oral tablet (4 sources) Antihistamine Start: 10-06-2016 End: 11-10-2022 take 10 mg by mouth once daily Hydroxyzine Hcl Discontinued 10 MG PO DAILY November 09, 2022 3:26pm November 10, 2022 8:53am rosuvastatin calcium 20 mg oral tablet (2 sources) HMG-CoA Reductase Inhibitor Start: 12-30-2021 End: 11-03-2022 take 20 mg by mouth once daily Rosuvastatin Discontinued 20 MG PO DAILY February 23, 2022 8:00am November 03, 2022 9:17am 60 actuat tiotropium 0.72155 mg/actuat inhalation spray (1 source) Anticholinergic Start: 11-19-2017 End: 06-17-2021 take 1 puff(s) by inhalation once daily Tiotropium [place] (Spiriva Respimat) 4 GM mist Discontinued 1 PUFF IH DAILY November 19, 2017 12:00am June 17, 2021 10:13am Problems Active Problems Problem Classification Problem Date Documented Date Episodic/Chronic Anxiety disorders (3 sources) Mixed anxiety and depressive disorder; Translations: [Anxiety disorder, unspecified] Onset: 02-17-2025 11-03-2022 Chronic Asthma (1 source) Asthma; Translations: [Unspecified asthma, uncomplicated] 06-17-2021 Chronic Attention-deficit, conduct, and disruptive behavior disorders (1 source) Attention-deficit hyperactivity disorder, unspecified type; Translations: [Attention-deficit hyperactivity disorder, unspecified type] Onset: 03-17-2025 Chronic Disorders of lipid metabolism (2 sources) Hyperlipidemia; Translations: [Hyperlipidemia, unspecified] 11-03-2022 Chronic Essential hypertension (1 source) Hypertensive disorder; Translations: [Essential (primary) hypertension] 11-09-2022 Chronic Fever of unknown origin (1 source) Fever; Translations: [Fever, unspecified] 10-29-2021 Episodic Immunizations and screening for infectious disease (1 source) Patient encounter status; Translations: [Encounter for screening for COVID-19] 10-29-2021 Episodic Mood disorders (1 source) Major depressive disorder, single episode, unspecified; Translations: [Major depressive disorder, single episode, unspecified] Onset: 03-17-2025 Chronic Open wounds of head; neck; and trunk (1 source) Complication of ear piercing; Translations: [Puncture wound without foreign body of left ear, initial encounter] 02-16-2020 Episodic Other circulatory disease (1 source) Elevated blood pressure; Translations: [Elevated blood-pressure reading, without diagnosis of hypertension] 06-17-2021 Episodic Other connective tissue disease (1 source) Fibromyalgia; Translations: [Fibromyalgia] 06-17-2021 Episodic Other connective tissue disease (1 source) Trigger thumb of left hand; Translations: [Trigger thumb, left thumb] 09-08-2020 Episodic Other connective tissue disease (1 source) Trigger thumb of right hand; Translations: [Trigger thumb, right thumb] 09-08-2020 Episodic Other ear and sense organ disorders (1 source) Posterior auricular pain; Translations: [Otalgia, left ear] 02-16-2020 Episodic Other eye disorders (1 source) Ptosis of bilateral eyebrows; Translations: [Brow ptosis, bilateral] 06-12-2019 Episodic Other female genital disorders (1 source) Cervical intraepithelial neoplasia grade 1; Translations: [Mild cervical dysplasia] 12-26-2021 Episodic Other nervous system disorders (1 source) Carpal tunnel syndrome; Translations: [Carpal tunnel syndrome, right upper limb] 09-08-2020 Chronic Other skin disorders (1 source) Wrinkled face; Translations: [Other specified disorders of the skin and subcutaneous tissue] 06-12-2019 Episodic Other skin disorders (1 source) Rhytide of forehead; Translations: [Other specified disorders of the skin and subcutaneous tissue] 06-12-2019 Episodic Other skin disorders (1 source) Rhytide of glabellar skin; Translations: [Other specified disorders of the skin and subcutaneous tissue] 06-12-2019 Episodic Otitis media and related conditions (1 source) Otitis media; Translations: [Otitis media, unspecified, right ear] 10-29-2021 Episodic Spondylosis; intervertebral disc disorders; other back problems (1 source) Chronic neck pain; Translations: [Cervicalgia] 09-08-2020 Episodic Substance-related disorders (1 source) Smoker; Translations: [Nicotine dependence, unspecified, uncomplicated] 06-12-2019 Chronic Thyroid disorders (3 sources) Hypothyroidism; Translations: [Hypothyroidism, unspecified] Onset: 04-02-2024 12-16-2021 Chronic Thyroid disorders (1 source) Disorder of thyroid gland; Translations: [Disorder of thyroid, unspecified] 06-17-2021 Episodic Past or Other Problems Problem Classification Problem Date Documented Da te Episodic/Chronic Other screening for suspected conditions (not mental disorders or infectious disease) (2 sources) Abnormal cervical Papanicolaou smear; Translations: [Unspecified abnormal cytological findings in specimens from cervix uteri] Onset: 11-18-2024 12-16-2021 Episodic Results Test Name Value Interpretation Reference Range Facility MR/BMS.BPon 03-19-2025 MR/BMS.BP [facility] [address] [place] [address], [place] [address] OFFICE VISIT Date of Service: 03/19/25 MR#: [id number] Acct: [id number] Name: SANDHYA MOSER Rep #: [id number] : 1960 Provider: Dr. Merrick Ramachandran se, DO Age/Sex: 64/F Location: [facility] Status: Signed Intake Vital Signs 02/17/25 14:38 03/12/25 16:07 03/19/25 09:37 Height 5 ft 5 ft 5 ft BP Intake Visit Reasons: 1 M FU Allergies Sulfa (Sulfonamide Antibiotics) Allergy (Verified 02/17/25 14:39) Swelling [facility] Medical History (Updated 11/20/24 @ 14:[address] Merrick Puga DO) ADHD Situational anxiety Restless leg Major depressive disorder Hypertension Dysplasia of cervix, low grade (KHRIS 1) Anxiety and depression Abnormal Pap smear of cervix Hyperlipidemia Elevated blood pressure reading Health care maintenance history of removal of cervical hardware Feeding by G-tube Chronic neck pain Zenkers diverticulum Fibromyalgia Depression Hypothyroidism Trigger thumb of left hand Trigger thumb of right hand Carpal tunnel syndrome, right Surgical History History of endometrial ablation History of right oophorectomy History of cholecystectomy History of neck surgery Social History Smoking Status: Current every day smoker alcohol intake: current alcohol intake frequency: holidays/special occasions only substance use type: marijuana and other details: medical card caffeine: Yes what type of physical activity do you participate in: none seatbelt use: always do you feel safe at home: Yes additional social history: Kadi Moser HPI History of Present Illness History provided by: patient HPI: Sandhya Moser is a 64 year old female who presents today for follow up evaluation. Patient reports that things remain up and down. Has been feeling like she gets angry very easily. Continues to try to cope with uncertain situation regarding her 's job and their finances and future. Has had some interpersonal conflict but able to manage fairly well. Denies any SI HI or AVH. Review of Systems Constitutional Denies: fever(s), chills, change in weight or fatigue Eyes Denies: change in vision or blurry vision Ears, Nose, Mouth, Throat Denies: throat pain, neck pain or change in hearing Cardiovascular Denies: chest pain, palpitations or dyspnea Respiratory Denies: dyspnea, cough or wheezing Gastrointestinal Denies: abdominal pain, nausea, vomiting, diarrhea or constipation Genitourinary Denies: dysuria or urinary frequency Musculoskeletal Reports: other (Restless legs/leg cramping); Denies: back pain, neck pain, joint pain or muscle weakness Integumentary/Breast Denies: rash or new lesions Neurological Denies: headache(s), dizziness or confusion Endocrine Denies: fatigue or excessive sweating Hematologic/Lymphati c Denies: easy bruising or easy bleeding Allergic/Immunologic Denies: wheezing Exam Mental Status Exam - Psych Appearance casually dressed and adequately groomed Attitude engaged Activity/Motor Behavior MSE activity/motor behavior finding no adventitious movements and appropriate eye contact Speech regular rate, regular volume and regular prosody Mood irritable Affect irritable Thought Process logical and coherent Thought Content no delusions and no hallucinations Suicidal Ideation none Homicidal Ideation none Attention intact Concentration impaired (Per pt. report.) Sensorium/Orientatio n awake, alert and oriented x3 Memory/Cognition intact Insight fair Judgement good Assessment Plan Assessment Plan (1) Major depressive disorder: Plan: -Continue Effexor as previously prescribed -Can continue clonazepam as needed given situational stress (2) ADHD: Plan: - Has positive using methylphenidate given ongoing alternative stressors Visit Details Duration of visit (minutes): 30 Coding Level of Care Code Off vis,est,level 4 Diagnoses Major depressive disorder F32.9 ADHD F90.9 03/23/25 0630 Date Merrick Puga DO [facility] Signature: Date (if applicable) CC: Normal [facility] MR/BMS.BPon 03-12-2025 MR/BMS.BP [facility] [address] [place] [address], [address] [place] [address] OFFICE VISIT Date of Service: 03/12/25 MR#: [id number] Acct: [id number] Name: SANDHYA MOSER Rep #: [id number] : 1960 Provider: [facility] Anat kahn Age/Sex: 64/F Location: [facility] Status: Signed Intake Vital Signs 02/27/25 07:07 03/12/25 16:07 Height 5 ft 5 ft BP Intake Visit Reasons: Follow up Allergies Sulfa (Sulfonamide Antibiotics) Allergy (Verified 02/17/25 14:39) Swelling [facility] Medical History (Updated 11/20/24 @ 14:[address] Merrick Puga DO) ADHD Situational anxiety Restless leg Major depressive disorder Hypertension Dysplasia of cervix, low grade (KHRIS 1) Anxiety and depression Abnormal Pap smear of cervix Hyperlipidemia Elevated blood pressure reading Health care maintenance history of removal of cervical hardware Feeding by G-tube Chronic neck pain Zenkers diverticulum Fibromyalgia Depression Hypothyroidism Trigger thumb of left hand Trigger thumb of right hand Carpal tunnel syndrome, right Surgical History History of endometrial ablation History of right oophorectomy History of cholecystectomy History of neck surgery Social History Smoking Status: Current every day smoker alcohol intake: current alcohol intake frequency: holidays/special occasions only substance use type: marijuana and other details: medical card caffeine: Yes what type of physical activity do you participate in: none seatbelt use: always do you feel safe at home: Yes additional social history: Kadi Moser HPI History of Present Illness HPI: Sandhya Moser is a 64 year-old female returning for therapy. She reported that she is coping better with stressors related to her 's health and career and their potential impact on family finances. Explored factors contributing to better coping, which included putting at least one behavioral activation task in place daily. Reinforced her actions and reviewed importance of opposite action. Sandhya is experiencing stress with son's girlfriend who is living in the home and not contributing or complying with any expectations. Encouraged verbalization of emotions while providing support. Worked on assertiveness, doing what is effective, and avoiding enabling inappropriate behaviors. No SI. Future-oriented to trip to [place] during upcoming weekend. Exam Mental Status Exam - Psych Appearance casually dressed and adequately groomed Attitude engaged Activity/Motor Behavior MSE activity/motor behavior finding no adventitious movements and appropriate eye contact Speech regular rate, regular volume and regular prosody Mood depressed, anxious and irritable Affect sad, anxious and irritable Thought Process logical and coherent Thought Content no delusions, no hallucinations and ruminations (Related to son's girlfriend's behaviors.) Suicidal Ideation none Homicidal Ideation none Attention intact Concentration impaired (Per pt. report.) Sensorium/Orientatio n awake, alert and oriented x3 Memory/Cognition intact Insight fair Judgement good Assessment Plan Assessment Plan (1) Major depressive disorder: Plan: therapy using CBT, DBT, and ACT interventions to address thought patterns contributing to depressive symptoms and teach coping skills. Continued psychiatric services to monitor depressive symptoms and medication effectiveness. Pt. to call 911, call suicide prevention hotline, or go to ER if experiencing suicidal ideation with plan and intent and/or feel unable to ensure own safety. (2) ADHD: Plan: BH therapy using CBT strategies to address ADHD symptoms and to teach coping skills. Continue appointments with prescriber to monitor ADHD symptoms and medication effectiveness. Plan TREATMENT PLAN Goal 1 - Develop healthy thought patterns and beliefs about self, others, and the world that reduce depressive symptoms and negative relational experiences AEB pt. report. Objective 1 - Will learn and apply problem-solving skills to conflicts in daily living. Intervention 1 - Teach at least 3 problem-solving skills and use role play and modeling to apply to daily life situations. Objective 1 - Will learn and apply DBT skills in daily living to reduce emotional distress and increase positive interactions with others. Intervention 1 - Teach at least 3 distress tolerance skills discussing how to apply to daily living. Intervention 2 - Teach at least 3 interpersonal effective skills discussing how to apply to daily living. Visit Details Duration of visit (minutes): 60 Duration of counseling (minutes): 60 Total time (minutes): 60 Type of visit: psychotherapy and [id number] Coding Level of Care Code Esta (more content not included)... Normal [facility] MR/BMS.BPon 02-27-2025 MR/BMS.BP [facility] [address] [place] [address], [address] [place] [address] OFFICE VISIT Date of Service: 02/26/25 MR#: [id number] Acct: [id number] Name: SANDHYA MOSER Rep #: [id number] : 1960 Provider: JOHN kahn Age/Sex: 64/F Location: [facility] Status: Signed Intake Vital Signs 02/17/25 18:34 02/27/25 07:07 Height 5 ft 5 ft BP Intake Visit Reasons: f/u Allergies Sulfa (Sulfonamide Antibiotics) Allergy (Verified 02/17/25 14:39) Swelling [facility] Medical History (Updated 11/20/24 @ 14:[address] Merrick Puga, ) ADHD Situational anxiety Restless leg Major depressive disorder Hypertension Dysplasia of cervix, low grade (KHRIS 1) Anxiety and depression Abnormal Pap smear of cervix Hyperlipidemia Elevated blood pressure reading Health care maintenance history of removal of cervical hardware Feeding by G-tube Chronic neck pain Zenkers diverticulum Fibromyalgia Depression Hypothyroidism Trigger thumb of left hand Trigger thumb of right hand Carpal tunnel syndrome, right Surgical History History of endometrial ablation History of right oophorectomy History of cholecystectomy History of neck surgery Social History Smoking Status: Current every day smoker alcohol intake: current alcohol intake frequency: holidays/special occasions only substance use type: marijuana and other details: medical card caffeine: Yes what type of physical activity do you participate in: none seatbelt use: always do you feel safe at home: Yes additional social history: Kadi Moser HPI History of Present Illness HPI: Sandhya Moser is a 64 year-old female returning for therapy. She reported a recent emergency situation with one of her pets, which resulted in her reframing her current situation. Sandhya discussed ongoing stressors related to 's recent evaluation limiting his ability to work in his field and resulting in family financial stressors. She reported need for financial planning adviser to help family assess financial state and needs. However, has not effectively followed through on this. Encouraged verbalization of emotions while providing support. Worked on problem solving related to tasks where she needs 's collaboration. Sandhya discussed trying to discuss her thoughts and feelings with her and lack of validation she experienced. Explored history of internalization of emotions with Sandhya sharing patterns in family of origin that included a lack of validation and resulted in her developing a pattern of internalizing her emotions. Explored coping. Sandhya has been engaging in household projects, which has been a distraction. Encouraged utilization of supports with Sandhya identifying recent support from a friend. Explored options for an IOP Program out of this area, as she has had concerns about her privacy in this area, to increase level of care. Sandhya expressed that she would end up in a care-taking role with others as she struggles with this pattern. Will continue outpatient counseling. Sandhya will call for a sooner appointment if needed. Passive SI with no plan or intent. Future-oriented. Protective factors reviewed. Exam Mental Status Exam - Psych Appearance casually dressed and adequately groomed Attitude engaged Activity/Motor Behavior MSE activity/motor behavior finding no adventitious movements and appropriate eye contact Speech regular rate, regular volume and regular prosody Mood depressed, anxious and irritable Affect sad, anxious and irritable Thought Process logical and coherent Thought Content no delusions, no hallucinations and ruminations (Related to household finances and interactions with .) Suicidal Ideation passive and other (No intent or plan.) Homicidal Ideation none Attention intact Concentration impaired (Per pt. report.) Sensorium/Orientatio n awake, alert and oriented x3 Memory/Cognition intact Insight fair Judgement good Assessment Plan Assessment Plan (1) Major depressive disorder: Plan: therapy using CBT, DBT, and ACT interventions to address thought patterns contributing to depressive symptoms and teach coping skills. Continued psychiatric services to monitor depressive symptoms and medication effectiveness. Pt. to call 911, call suicide prevention hotline, or go to ER if experiencing suicidal ideation with plan and intent and/or feel unable to ensure own safety. (2) ADHD: Plan: therapy using CBT strategies to address ADHD symptoms and to teach coping skills. Continue appointments with prescriber to monitor ADHD symptoms and medication effectiveness. Plan TREATMENT PLAN Goal 1 - Develop healthy thought patterns and beliefs about self, others, and the world (more content not included)... Normal [facility] MR/BMS.BPon 02-24-2025 MR/BMS.[facility] [facility] [address] [place] [address] OFFICE VISIT Date of Service: 02/23/25 MR#: [id number] Acct: [id number] Name: SANDHYA MOSER KINA Rep #: [id number] : 1960 Provider: JOHN kahn Age/Sex: 64/F [place] [facility] [place] Status: Signed Intake Vital Signs 02/17/25 14:38 02/24/25 15:38 Height 5 ft 5 ft BP 131/83 H Blood Pressure Location Lt brachial Position Sitting Respiration 16 Pulse 105 H Pulse Source Monitor BP Intake Visit Reasons: Follow up Allergies Sulfa (Sulfonamide Antibiotics) Allergy (Verified 02/17/25 14:39) Swelling [facility] Medical History (Updated 11/20/24 @ 14:[address] Merrick Puga, ) ADHD Situational anxiety Restless leg Major depressive disorder Hypertension Dysplasia of cervix, low grade (KHRIS 1) Anxiety and depression Abnormal Pap smear of cervix Hyperlipidemia Elevated blood pressure reading Health care maintenance history of removal of cervical hardware Feeding by G-tube Chronic neck pain Zenkers diverticulum Fibromyalgia Depression Hypothyroidism Trigger thumb of left hand Trigger thumb of right hand Carpal tunnel syndrome, right Surgical History History of endometrial ablation History of right oophorectomy History of cholecystectomy History of neck surgery Social History Smoking Status: Current every day smoker alcohol intake: current alcohol intake frequency: holidays/special occasions only substance use type: marijuana and other details: medical card caffeine: Yes what type of physical activity do you participate in: none seatbelt use: always do you feel safe at home: Yes additional social history: Kadi Moser HPI History of Present Illness HPI: Sandhya Moser is a 64 year-old female returning for therapy. She reported a very difficult weekend and having had some passive SI with no plan or intent. Sandhya denied any current SI. Explored triggers to negative emotions over the weekend, which included financial stressors related to 's inability to perform recent job, his failure to plan an alternative income, his failure to identify the state of family finances, and him being dishonest with her about actions he has taken. Explored previous times where 's behaviors impacted her and resulted in her having negative emotions. Sandhya discussed a time, in the past, where there were financial issues with his previous practice that resulted in filing for bankruptcy. She discussed actions she had taken, impact of his actions on her, and their participation in couples counseling. Encouraged verbalization of emotions while providing support. Normalized emotions. Problem-solved options for managing stressors. Explored coping. Sandhya identified getting rest and engaging in productive household tasks as having been effective over the weekend. She was also able to be assertive with son's girlfriend about some of her concerns. His girlfriend escalated resulting in conversation ending. Examined what she could and could not control. Sandhya acknowledged some difficulty with being verbally aggressive in conversations with her . Future-oriented to being a support to her niece whose child is experiencing medical issues and to next therapy appointment. Sandhya will implement time with her supports when she can. She may consider, in the future, whether or not she believes couples counseling would be helpful but is not ready to think about this option at this time. Exam Mental Status Exam - Psych Appearance casually dressed and adequately groomed Attitude engaged Activity/Motor Behavior MSE activity/motor behavior finding no adventitious movements and appropriate eye contact Speech regular rate, regular volume and regular prosody Mood depressed, anxious and irritable Affect sad, anxious and irritable Thought Process logical and coherent Thought Content no delusions, no hallucinations and ruminations (Related to household finances and interactions with .) Suicidal Ideation none and other (Reports passive SI with no plan or intent over weekend.) Homicidal Ideation none Attention intact Concentration impaired (Per pt. report.) Sensorium/Orientatio n awake, alert and oriented x3 Memory/Cognition intact Insight fair Judgement good Assessment Plan Assessment Plan (1) Major depressive disorder: Plan: therapy using CBT, DBT, and ACT interventions to address thought patterns contributing to depressive symptoms and teach coping skills. Continued psychiatric services to monitor depressive symptoms and medication effectiveness. Pt. to call 911, call suicide prevention hotline, or go to ER if experiencing suicidal ideation with plan and i (more content not included)... Normal [facility] MR/BMS.BPon 02-17-2025 MR/BMS.BP [facility] [facility], [address] [place] [address] OFFICE VISIT Date of Service: 02/17/25 MR#: [id number] Acct: [id number] Name: SANDHYA MOSER KINA Rep #: [id number] : 1960 [facility] Age/Sex: 64/F [place] [facility] [place] Status: Signed Intake Vital Signs 01/17/25 12:07 02/17/25 14:38 02/17/25 18:34 Height 5 ft 5 ft 5 ft BP 131/83 H Blood Pressure Location Lt brachial Position Sitting Respiration 16 Pulse 105 H Pulse Source Monitor BP Intake Visit Reasons: Follow up Allergies Sulfa (Sulfonamide Antibiotics) Allergy (Verified 02/17/25 14:39) Swelling [facility] Medical History (Updated 11/20/24 @ 14:[address] Merrick Puga, ) ADHD Situational anxiety Restless leg Major depressive disorder Hypertension Dysplasia of cervix, low grade (KHRIS 1) Anxiety and depression Abnormal Pap smear of cervix Hyperlipidemia Elevated blood pressure reading Health care maintenance history of removal of cervical hardware Feeding by G-tube Chronic neck pain Zenkers diverticulum Fibromyalgia Depression Hypothyroidism Trigger thumb of left hand Trigger thumb of right hand Carpal tunnel syndrome, right Surgical History History of endometrial ablation History of right oophorectomy History of cholecystectomy History of neck surgery Social History Smoking Status: Current every day smoker alcohol intake: current alcohol intake frequency: holidays/special occasions only substance use type: marijuana and other details: medical card caffeine: Yes what type of physical activity do you participate in: none seatbelt use: always do you feel safe at home: Yes additional social history: Kadi Moser HPI History of Present Illness HPI: Sandhya Moser is a 64 year-old female returning for therapy. She reported decreased distress since last therapy appointment and denied any SI. Sandhya identified utilizing supports over the weekend and engaging in pleasant activities, which was reinforced. She discussed with her what she needed to know to manage current stressors related to his health and employment, which also was reinforced. Sandhya identified negative emotions being triggered by son's girlfriend who resides in the home. Encouraged verbalization of emotions while providing support. Discussed regularly addressing needs with . Worked on healthy boundaries and assertiveness. Assisted Sandhya in exploring what she can and cannot control. She does not believe IOP Program would be beneficial for her at this time. Future-oriented. Exam Mental Status Exam - Psych Appearance casually dressed and adequately groomed Attitude engaged Activity/Motor Behavior MSE activity/motor behavior finding no adventitious movements and appropriate eye contact Speech regular rate, regular volume and regular prosody Mood depressed, anxious and irritable Affect sad, anxious and irritable Thought Process logical and coherent Thought Content no delusions, no hallucinations and ruminations (Related to household finances.) Suicidal Ideation none Homicidal Ideation none Attention intact Concentration impaired (Per pt. report.) Sensorium/Orientatio n awake, alert and oriented x3 Memory/Cognition intact Insight fair Judgement good Assessment Plan Assessment Plan (1) Major depressive disorder: Plan: therapy using CBT, DBT, and ACT interventions to address thought patterns contributing to depressive symptoms and teach coping skills. Continued psychiatric services to monitor depressive symptoms and medication effectiveness. Pt. to call 911, call suicide prevention hotline, or go to ER if experiencing suicidal ideation with plan and intent and/or feel unable to ensure own safety. (2) ADHD: Plan: therapy using CBT strategies to address ADHD symptoms and to teach coping skills. Continue appointments with prescriber to monitor ADHD symptoms and medication effectiveness. Plan TREATMENT PLAN Goal 1 - Develop healthy thought patterns and beliefs about self, others, and the world that reduce depressive symptoms and negative relational experiences AEB pt. report. Objective 1 - Will learn and apply problem-solving skills to conflicts in daily living. Intervention 1 - Teach at least 3 problem-solving skills and use role play and modeling to apply to daily life situations. Objective 1 - Will learn and apply DBT skills in daily living to reduce emotional distress and increase positive interactions with others. Intervention 1 - Teach at least 3 distress tolerance skills discussing how to apply to daily living. Intervention 2 - Teach at least 3 interpersonal effective skills discussing how to apply to daily living (more content not included)... Normal [facility] MR/BMS.BP [facility] [address] [place] [address], [address] [place] [address] OFFICE VISIT Date of Service: 02/17/25 MR#: [id number] Acct: [id number] Name: SANDHYA MOSER KINA Rep #: [id number] : 1960 Provider: Dr. Merrick Ramachandran se, DO Age/Sex: 64/F Location: [facility] [place] Status: Signed Intake Vital Signs 12/18/24 14:07 02/13/25 12:30 02/17/25 14:38 Height 5 ft 5 ft 5 ft BP 131/83 H Blood Pressure Location Lt brachial Position Sitting Respiration 16 Pulse 105 H Pulse Source Monitor BP Intake Visit Reasons: 2 M FU Accompanied by: Self Allergies Sulfa (Sulfonamide Antibiotics) Allergy (Verified 02/17/25 14:39) Swelling Medications ???Medication ???Instructions ???Recorded ???Confirmed ???Type hydroxyzine HCl 10 mg tablet 10 mg PO DAILY PRN allergic 02/17/25 Rx symptoms #90 tabs montelukast 10 mg tablet 10 mg PO DAILY 01/26/23 02/17/25 H istory albuterol sulfate 90 mcg/actuation See Rx Instructions .Route 02/1202/17/25 Rx aerosol inhaler .COMPLEX #8.5 ea levothyroxine 112 mcg tablet See Rx Instructions .Route 3 02/17/25 Rx .COMPLEX #90 tabs levocetirizine 5 mg tablet See Rx Instructions .Route 3 02/17/25 Rx .COMPLEX #90 tabs atorvastatin 10 mg tablet (Lipitor) 10 mg PO DAILY 3 months #90 tab s 04/05/24 02/17/25 Rx amlodipine 5 mg tablet See Rx Instructions .Route 4 02/17/25 Rx .COMPLEX #90 tabs venlafaxine 150 mg 150 mg PO DAILY #90 caps 09/10/24 02/17/25 Rx capsule,extended release 24 hr clonazepam 0.5 mg tablet 0.5 mg PO BID #60 tabs 02/17/25 Rx [facility] Medical History (Updated 11/20/24 @ 14:[address] Merrick Puga, DO) ADHD Situational anxiety Restless leg Major depressive disorder Hypertension Dysplasia of cervix, low grade (KHRIS 1) Anxiety and depression Abnormal Pap smear of cervix Hyperlipidemia Elevated blood pressure reading Health care maintenance history of removal of cervical hardware Feeding by G-tube Chronic neck pain Zenkers diverticulum Fibromyalgia Depression Hypothyroidism Trigger thumb of left hand Trigger thumb of right hand Carpal tunnel syndrome, right Surgical History History of endometrial ablation History of right oophorectomy History of cholecystectomy History of neck surgery Social History Smoking Status: Current every day smoker alcohol intake: current alcohol intake frequency: holidays/special occasions only substance use type: marijuana and other details: medical card caffeine: Yes what type of physical activity do you participate in: none seatbelt use: always do you feel safe at home: Yes additional social history: Kadi Moser HPI History of Present Illness History provided by: patient HPI: Sandhya Moser is a 64 year old female who presents today for follow up evaluation. Patient admits that things have been going much worse in recent past. recently had neuropsychology testing done, and has essentially been told that he can't operate any more. This is because a significant manage stressed because she does not know where they stand financially without him working and considers whether they would need to sell their house, move, or make other lifestyle changes. This was a huge blow for her in terms of stress. Has only been hanging in there. Son has been working time motion analyst which has been an improvement, however she has not been getting along well with her son's girlfriend who spends a significant amount time at their house. Had voiced some passive thoughts of suicide last week with therapist however denies any acute suicidal ideation today. Review of Systems Constitutional Denies: fever(s), chills, change in weight or fatigue Eyes Denies: change in vision or blurry vision Ears, Nose, Mouth, Throat Denies: throat pain, neck pain or change in hearing Cardiovascular Denies: chest pain, palpitations or dyspnea Respiratory Denies: dyspnea, cough or wheezing Gastrointestinal Denies: abdominal pain, nausea, vomiting, diarrhea or constipation Genitourinary Denies: dysuria or urinary frequency Musculoskeletal Reports: other (Restless legs/leg cramping); Denies: back pain, neck pain, joint pain or muscle weakness Integumentary/Breast Denies: rash or new lesions Neurological Denies: headache(s), dizziness or confusion Endocrine Denies: fatigue or excessive sweating Hematologic/Lymphati c Denies: easy bruising or easy bleeding Allergic/Immunologic Denies: wheezing Exam Mental Status Exam - Psych Appearance unkempt Attitude engaged Activity/Motor Behavior MSE activity/motor behavior finding no adventitious movements and appropriate eye contact Speech regular (more content not included)... [facility] MR/BMS.BPon 02-13-2025 MR/BMS.BP [facility] [facility], [address] [place] [address] OFFICE VISIT Date of Service: 02/13/25 MR#: [id number] Acct: [id number] Name: SANDHYA MOSER KINA Rep #: [id number] : 1960 Provider: [facility] Anat kahn Age/Sex: 64/F Location: [facility] [place] Status: Signed Intake Vital Signs 12/18/24 14:07 01/17/25 12:07 02/13/25 12:30 Height 5 ft 5 ft 5 ft BP 125/77 H Blood Pressure Location Lt brachial Position Sitting Respiration 16 Pulse 87 Pulse Source Monitor BP Intake Visit Reasons: follow up Allergies Sulfa (Sulfonamide Antibiotics) Allergy (Verified 12/18/24 14:10) Swelling [facility] Medical History (Updated 11/20/24 @ 14:[address] Merrick Puga, DO) ADHD Situational anxiety Restless leg Major depressive disorder Hypertension Dysplasia of cervix, low grade (KHRIS 1) Anxiety and depression Abnormal Pap smear of cervix Hyperlipidemia Elevated blood pressure reading Health care maintenance history of removal of cervical hardware Feeding by G-tube Chronic neck pain Zenkers diverticulum Fibromyalgia Depression Hypothyroidism Trigger thumb of left hand Trigger thumb of right hand Carpal tunnel syndrome, right Surgical History History of endometrial ablation History of right oophorectomy History of cholecystectomy History of neck surgery Social History Smoking Status: Current every day smoker alcohol intake: current alcohol intake frequency: holidays/special occasions only substance use type: marijuana and other details: medical card caffeine: Yes what type of physical activity do you participate in: none seatbelt use: always do you feel safe at home: Yes additional social history: Kadi Moser HPI History of Present Illness HPI: Sandhya Moser is a 64 year-old female returning for therapy. She reported learning that could not return to his job due to medical issues. Sandhya expressed concerns about finances and keeping their home. She identified that her is not communicating details with her. Sandhya expressed concern that 's attempts to emotionally protect her are increasing her distress and anger resulting in conflicts with him. She identified increased depressive symptoms and was tearful throughout the session. Worked on identifying what she needs to know or resolve in order to reduce her distress and how she can communicate this with her . Provided psychoeducation on behavioral activation to increase her mood. Sandhya reported some fleeting suicidal thoughts. She denied any suicidal plan or intent. Sandhya agreed to go to the ER or call the suicide prevention hotline if her symptoms increased and/or she felt she could not ensure her safety. Worked on identifying protective factors, which included her , her children, and her [id number]. Sandhya presented as future-oriented to time with a friend this weekend, appointment with Dr. Puga on 02/17/2025 and appointment with this therapist on 02/17/2025. She gave permission for this therapist to provide her contact information to [facility]. She is willing to explore whether or not the program would be a good fit for her as she may benefit from increased services at this time. Exam Mental Status Exam - Psych Appearance casually dressed and adequately groomed Attitude cooperative and engaged Activity/Motor Behavior MSE activity/motor behavior finding no adventitious movements and appropriate eye contact Speech regular rate, regular volume and regular prosody Mood depressed Affect sad and tearful Thought Content no delusions, no hallucinations and ruminations (Regarding 's career and financial stressors.) Suicidal Ideation passive (No suicidal plan or intent.) Homicidal Ideation none Attention intact Concentration impaired (Per pt. report.) Sensorium/Orientatio n alert and oriented x3 Memory/Cognition intact Insight fair Judgement good Assessment Plan Assessment Plan (1) Major depressive disorder: Plan: therapy using CBT, DBT, and ACT interventions to address thought patterns contributing to depressive symptoms and teach coping skills. Continued psychiatric services to monitor depressive symptoms and medication effectiveness. Pt. to call 911, call suicide prevention hotline, or go to ER if experiencing suicidal ideation with plan and intent and/or feel unable to ensure own safety. (2) ADHD: Plan: therapy using CBT strategies to address ADHD symptoms and to teach coping skills. Continue appointments with prescriber to monitor ADHD symptoms and medication effectiveness. Plan TREATMENT PLAN (10/16/2024) Goal 1 - Develop healthy thought patterns and beliefs about self (more content not included)... Normal [facility] MR/BMS.BPon 01-17-2025 MR/BMS.BP [facility] [address] [place] [address], [address] [place] [address] OFFICE VISIT Date of Service: 01/16/25 MR#: [id number] Acct: [id number] Name: SANDHYA MOSER KINA Rep #: [id number] : 1960 Provider: [facility] Anat kahn Age/Sex: 64/F Location: [facility] [place] Status: Signed Intake Vital Signs 10/31/24 07:40 12/29/24 13:49 01/17/25 12:07 Height 5 ft 1 in 5 ft 5 ft BP Intake Visit Reasons: Follow up Allergies Sulfa (Sulfonamide Antibiotics) Allergy (Verified 12/18/24 14:10) Swelling [facility] Medical History (Updated 11/20/24 @ 14:[address] Merrick Puga, ) ADHD Situational anxiety Restless leg Major depressive disorder Hypertension Dysplasia of cervix, low grade (KHRIS 1) Anxiety and depression Abnormal Pap smear of cervix Hyperlipidemia Elevated blood pressure reading Health care maintenance history of removal of cervical hardware Feeding by G-tube Chronic neck pain Zenkers diverticulum Fibromyalgia Depression Hypothyroidism Trigger thumb of left hand Trigger thumb of right hand Carpal tunnel syndrome, right Surgical History History of endometrial ablation History of right oophorectomy History of cholecystectomy History of neck surgery Social History Smoking Status: Current every day smoker alcohol intake: current alcohol intake frequency: holidays/special occasions only substance use type: marijuana and other details: medical card caffeine: Yes what type of physical activity do you participate in: none seatbelt use: always do you feel safe at home: Yes additional social history: Kadi Moser HPI History of Present Illness HPI: Sandhya Moser is a 64 year-old female returning for therapy. She reported recently returning from a trip to [place] with family members. Sandhya identified that the trip reduced her anxiety as she was away from daily stressors and engaged in pleasant activities. She discussed stressors related to interactions with son's current and previous girlfriend. Sandhya discussed attempts she has made to form positive relationships with both and their actions that have negatively impacted her. Encouraged verbalization of emotions while providing support. She recognized similarities between her and her son in assuming care-taking roles with others who are struggling. Sandhya discussed early life events that have influenced the development of this pattern. Worked with Sandhya to help her identify what communication has and has not been effective with son's current girlfriend and how to avoid behaviors that reinforce inappropriate behavior. Encouraged use of self-care particularly after difficult interactions. No SI. Future-oriented. Exam Mental Status Exam - Psych Appearance casually dressed and adequately groomed Attitude engaged Activity/Motor Behavior MSE activity/motor behavior finding no adventitious movements and appropriate eye contact Speech regular rate, regular volume and regular prosody Mood irritable Affect irritable Thought Process linear, logical and coherent Thought Content no delusions, no hallucinations and ruminations (Related to son's girlfriend's behaviors.) Suicidal Ideation none Homicidal Ideation none Attention intact Concentration impaired (Per pt. report.) Sensorium/Orientatio n alert and oriented x3 Memory/Cognition intact Insight fair Judgement good Assessment Plan Assessment Plan (1) Major depressive disorder: Plan: therapy using CBT, DBT, and ACT interventions to address thought patterns contributing to depressive symptoms and teach coping skills. Continued psychiatric services to monitor depressive symptoms and medication effectiveness. Pt. to call 911, call suicide prevention hotline, or go to ER if experiencing suicidal ideation with plan and intent and/or feel unable to ensure own safety. (2) ADHD: Plan: therapy using CBT, DBT, and ACT interventions to address thought patterns contributing to anxious symptoms and to teach coping skills. Psychiatric services to monitor anxious symptoms and medication effectiveness. Plan TREATMENT PLAN (10/16/2024) Goal 1 - Develop healthy thought patterns and beliefs about self, others, and the world that reduce depressive symptoms and negative relational experiences AEB pt. report. Objective 1 - Will learn and apply problem-solving skills to conflicts in daily living. Intervention 1 - Teach at least 3 problem-solving skills and use role play and modeling to apply to daily life situations. Objective 1 - Will learn and apply DBT skills in daily living to reduce emotional distress and increase positive interactions with others. Intervention 1 - Teach at least 3 distress tolerance skills discussing how to apply to daily yuriy (more content not included)... Normal [facility] MR/BMS.BPon 12-29-2024 MR/BMS.BP [facility] [address] [place] [address], [address] [place] [address] OFFICE VISIT Date of Service: 12/26/24 MR#: [id number] Acct: [id number] Name: SANDHYA MOSER KINA Rep #: [id number] : 1960 Provider: [facility] Anat kahn Age/Sex: 64/F [place] [facility] [place] Status: Signed Intake Vital Signs 10/31/24 07:40 12/18/24 14:07 12/29/24 13:49 Height 5 ft 1 in 5 ft 5 ft BP Intake Visit Reasons: Follow up Allergies Sulfa (Sulfonamide Antibiotics) Allergy (Verified 12/18/24 14:10) Swelling [facility] Medical History (Updated 11/20/24 @ 14:[address] Merrick Puga, ) ADHD Situational anxiety Restless leg Major depressive disorder Hypertension Dysplasia of cervix, low grade (KHRIS 1) Anxiety and depression Abnormal Pap smear of cervix Hyperlipidemia Elevated blood pressure reading Health care maintenance history of removal of cervical hardware Feeding by G-tube Chronic neck pain Zenkers diverticulum Fibromyalgia Depression Hypothyroidism Trigger thumb of left hand Trigger thumb of right hand Carpal tunnel syndrome, right Surgical History History of endometrial ablation History of right oophorectomy History of cholecystectomy History of neck surgery Social History Smoking Status: Current every day smoker alcohol intake: current alcohol intake frequency: holidays/special occasions only substance use type: marijuana and other details: medical card caffeine: Yes what type of physical activity do you participate in: none seatbelt use: always do you feel safe at home: Yes additional social history: Kadi Moser HPI History of Present Illness HPI: Sandhya Moser is a 64 year-old female returning for therapy. She reported ongoing stressors related to son's girlfriend residing in the home. Encouraged verbalization of emotions while providing support. Explored what has and has not been effective when interacting with son's girlfriend. Focused on doing what is productive. Worked on coping, which has included utilization of supports and planning activities outside the home. Sandhya also discussed conflicts within her family of origin and their impact on her. She reported recently being prescribed Ritalin. At this time, she denies noticing any reduction in symptoms but has just started it. No reports of SI. Future-oriented. Exam Mental Status Exam - Psych Appearance casually dressed and adequately groomed Attitude engaged Activity/Motor Behavior MSE activity/motor behavior finding no adventitious movements and appropriate eye contact Speech regular rate, regular volume and regular prosody Mood irritable Affect irritable Thought Process linear, logical and coherent Thought Content no delusions, no hallucinations and ruminations (Related to interactions with son's girlfriend.) Suicidal Ideation none Homicidal Ideation none Attention intact Concentration impaired (Per pt. report.) Sensorium/Orientatio n awake, alert and oriented x3 Memory/Cognition intact Insight fair Judgement good Assessment Plan Assessment Plan (1) Major depressive disorder: Plan: therapy using CBT, DBT, and ACT interventions to address thought patterns contributing to depressive symptoms and teach coping skills. Continued psychiatric services to monitor depressive symptoms and medication effectiveness. Pt. to call 911, call suicide prevention hotline, or go to ER if experiencing suicidal ideation with plan and intent and/or feel unable to ensure own safety. (2) ADHD: Plan: BH therapy using CBT strategies to address ADHD symptoms and to teach coping skills. Psychiatric services to monitor ADHD symptoms and medication effectiveness. Plan TREATMENT PLAN (10/16/2024) Goal 1 - Develop healthy thought patterns and beliefs about self, others, and the world that reduce depressive symptoms and negative relational experiences AEB pt. report. Objective 1 - Will learn and apply problem-solving skills to conflicts in daily living. Intervention 1 - Teach at least 3 problem-solving skills and use role play and modeling to apply to daily life situations. Objective 1 - Will learn and apply DBT skills in daily living to reduce emotional distress and increase positive interactions with others. Intervention 1 - Teach at least 3 distress tolerance skills discussing how to apply to daily living. Intervention 2 - Teach at least 3 interpersonal effective skills discussing how to apply to daily living. Visit Details Duration of visit (minutes): 60 Duration of counseling (minutes): 60 Total time (minutes): 60 Type of visit: psychotherapy and [id number] C[place] [address] PSYTX W PT 60 MINUTES Patient Type Established Diagnoses (more content not included)... [facility] MR/BMS.BPon 12-18-2024 MR/BMS.BP [facility] [address] [place] [address], [address] [place] [address] OFFICE VISIT Date of Service: 12/18/24 MR#: [id number] Acct: [id number] Name: SANDHYA MOSRE KINA Rep #: [id number] : 1960 Provider: Dr. Merrick Ramahcandran se, DO Age/Sex: 64/F Location[place] [facility] [place] Status: Signed Intake Vital Signs 11/20/24 13:31 11/28/24 12:33 12/18/24 14:07 Height 5 ft 5 ft 5 ft Weight: 147 lb BMI 28.7 BP 129/83 H 125/77 H Blood Pressure Location Lt brachial Lt brachial Position Sitting Sitting Respiration 16 16 Pulse 84 87 Pulse Source Monitor Monitor BP Intake Visit Reasons: 1 M FU Accompanied by: Self Allergies Sulfa (Sulfonamide Antibiotics) Allergy (Verified 12/18/24 14:10) Swelling Medications ???Medication ???Instructions ???Recorded ???Confirmed ???Type hydroxyzine HCl 10 mg tablet 10 mg PO DAILY PRN allergic 12/18/24 Rx symptoms #90 tabs montelukast 10 mg tablet 10 mg PO DAILY 01/26/23 12/18/24 H istory albuterol sulfate 90 mcg/actuation See Rx Instructions .Route 02/1212/18/24 Rx aerosol inhaler .COMPLEX #8.5 ea levothyroxine 112 mcg tablet See Rx Instructions .Route 3 12/18/24 Rx .COMPLEX #90 tabs levocetirizine 5 mg tablet See Rx Instructions .Route 3 12/18/24 Rx .COMPLEX #90 tabs atorvastatin 10 mg tablet (Lipitor) 10 mg PO DAILY 3 months #90 tab s 04/05/24 12/18/24 Rx amlodipine 5 mg tablet See Rx Instructions .Route 4 12/18/24 Rx .COMPLEX #90 tabs clonazepam 0.5 mg tablet 0.5 mg PO BID #60 tabs 09/10/24 Rx venlafaxine 150 mg 150 mg PO DAILY #90 caps 09/10/24 12/18/24 Rx capsule,extended release 24 hr [facility] Medical History (Updated 11/20/24 @ 14:[address] Merrick Puga, DO) ADHD Situational anxiety Restless leg Major depressive disorder Hypertension Dysplasia of cervix, low grade (KHRIS 1) Anxiety and depression Abnormal Pap smear of cervix Hyperlipidemia Elevated blood pressure reading Health care maintenance history of removal of cervical hardware Feeding by G-tube Chronic neck pain Zenkers diverticulum Fibromyalgia Depression Hypothyroidism Trigger thumb of left hand Trigger thumb of right hand Carpal tunnel syndrome, right Surgical History History of endometrial ablation History of right oophorectomy History of cholecystectomy History of neck surgery Social History Smoking Status: Current every day smoker alcohol intake: current alcohol intake frequency: holidays/special occasions only substance use type: marijuana and other details: medical card caffeine: Yes what type of physical activity do you participate in: none seatbelt use: always do you feel safe at home: Yes additional social history: Kadi Moser HPI History of Present Illness History provided by: patient HPI: Sandhya Moser is a 64 year old female who presents today for follow up evaluation. Patient reports that she has been better. Recently went to [place] and spend some time away from the house and this did help her mental health. Has been working in therapy to improve her outlook and her mindset. Took ritalin for the first time yesterday and felt like she had more energy but too early to determine any other significant benefit. Denies any side effects from medication. Denies any SI HI or AVH. Review of Systems Constitutional Denies: fever(s), chills, change in weight or fatigue Eyes Denies: change in vision or blurry vision Ears, Nose, Mouth, Throat Denies: throat pain, neck pain or change in hearing Cardiovascular Denies: chest pain, palpitations or dyspnea Respiratory Denies: dyspnea, cough or wheezing Gastrointestinal Denies: abdominal pain, nausea, vomiting, diarrhea or constipation Genitourinary Denies: dysuria or urinary frequency Musculoskeletal Reports: other (Restless legs/leg cramping); Denies: back pain, neck pain, joint pain or muscle weakness Integumentary/Breast Denies: rash or new lesions Neurological Denies: headache(s), dizziness or confusion Endocrine Denies: fatigue or excessive sweating Hematologic/Lymphati c Denies: easy bruising or easy bleeding Allergic/Immunologic Denies: wheezing Exam Mental Status Exam - Psych Appearance casually dressed and adequately groomed Attitude engaged Activity/Motor Behavior appropriate eye contact and fidgeting Speech regular rate, regular volume and regular prosody Mood anxious (But better) Affect full range (Much brighter than previous) Thought Process coherent Thought Content no delusions and no hallucinations Suicidal Ideation none Homicidal Ideation none Attention intact Concentration impaired (Per pt. report.) Se (more content not included)... [facility] MR/BMS.BPon 11-28-2024 MR/BMS.BP [facility] [address] [place] [address], [address] [place] [id number] OFFICE VISIT Date of Service: 11/28/24 MR#: [id number] Acct: [id number] Name: SANDHYA MOSER KINA Rep #: [id number] : 1960 [facility] Age/Sex: 64/F Location[place] [facility] [place] Status: Signed Intake Vital Signs 10/31/24 07:40 11/20/24 13:31 11/28/24 12:33 Height 5 ft 1 in 5 ft 5 ft Weight: 147 lb BMI 28.7 BP 129/83 H Blood Pressure Location Lt brachial Position Sitting Respiration 16 Pulse 84 Pulse Source Monitor BP Intake Visit Reasons: follow up Allergies Sulfa (Sulfonamide Antibiotics) Allergy (Verified 11/20/24 13:34) Swelling [facility] Medical History (Updated 11/20/24 @ 14:[address] Merrick Puga, ) ADHD Situational anxiety Restless leg Major depressive disorder Hypertension Dysplasia of cervix, low grade (KHRIS 1) Anxiety and depression Abnormal Pap smear of cervix Hyperlipidemia Elevated blood pressure reading Health care maintenance history of removal of cervical hardware Feeding by G-tube Chronic neck pain Zenkers diverticulum Fibromyalgia Depression Hypothyroidism Trigger thumb of left hand Trigger thumb of right hand Carpal tunnel syndrome, right Surgical History History of endometrial ablation History of right oophorectomy History of cholecystectomy History of neck surgery Social History Smoking Status: Current every day smoker alcohol intake: current alcohol intake frequency: holidays/special occasions only substance use type: marijuana and other details: medical card caffeine: Yes what type of physical activity do you participate in: none seatbelt use: always do you feel safe at home: Yes additional social history: Kadi Moser HPI History of Present Illness HPI: Sandhya Moser is a 64 year-old female returning for therapy. She reported having been physically ill. Sandhya identified 's health and work situation as a significant stressor for her. She reported having tried the DBT skills discussed at previous sessions stating they only help for 5 minutes and believing focusing on them is ineffective until 's situation is resolved. Sandhya reported anger and frustration about son's girlfriend's behaviors and plan to confront her soon. She discussed pattern of care taking and difficulty setting limits with others as she does not want to create negative feelings for others. Sandhya discussed awareness of this pattern and addressing it in previous counseling. Encouraged verbalization of emotions while providing support. Examined costs of care taking behaviors. Worked on thought patterns that she is responsible for others' emotions and can change others using CBT interventions. Reviewed thoughts contributing to decision to have son's girlfriend move into the home. No SI. Future-oriented to trip to [place]. Exam Mental Status Exam - Psych Appearance casually dressed and adequately groomed Attitude engaged Activity/Motor Behavior appropriate eye contact and fidgeting Speech regular rate, regular volume and regular prosody Mood depressed, anxious and irritable Affect full range Thought Process coherent Thought Content no delusions and no hallucinations Suicidal Ideation none Homicidal Ideation none Attention impaired (Per pt. report.) Concentration impaired (Per pt. report.) Sensorium/Orientatio n alert and oriented x3 Memory/Cognition intact Insight fair Judgement good Assessment Plan Assessment Plan (1) Major depressive disorder: Plan: therapy using CBT, DBT, and ACT interventions to address thought patterns contributing to depressive symptoms and teach coping skills. Continued psychiatric services to monitor depressive symptoms and medication effectiveness. Pt. to call 911, call suicide prevention hotline, or go to ER if experiencing suicidal ideation with plan and intent and/or feel unable to ensure own safety. (2) ADHD: Plan: therapy using CBT strategies to address ADHD symptoms and to teach coping skills. Continue appointments with prescriber to monitor ADHD symptoms and medication effectiveness. Plan Detail Assessment: TREATMENT PLAN (10/16/2024) Goal 1 - Develop healthy thought patterns and beliefs about self, others, and the world that reduce depressive symptoms and negative relational experiences AEB pt. report. Objective 1 - Will learn and apply problem-solving skills to conflicts in daily living. Intervention 1 - Teach at least 3 problem-solving skills and use role play and modeling to apply to daily life situations. Objective 1 - Will learn and apply DBT skills in daily living to reduce emotional distress and increase positive interactions with (more content not included)... [facility] MR/BMSFilippoBPon 11-20-2024 MR/BMS. [facility] [address] [place] [address], [address] [place] [id number] OFFICE VISIT Date of Service: 11/20/24 MR#: [id number] Acct: [id number] Name: SANDHYA MOSER Rep #: [id number] : 1960 Provider: Dr. Merrick Ramachandran se, DO Age/Sex: 64/F Location: [facility] [place] Status: Signed Intake Vital Signs 10/16/24 17:07 11/06/24 17:17 11/20/24 13:31 Height 5 ft 1 in 5 ft 1 in 5 ft Weight: 147 lb BMI 28.7 BP 129/83 H Blood Pressure Location Lt brachial Position Sitting Respiration 16 Pulse 84 Pulse Source Monitor BP Intake Visit Reasons: follow up Accompanied by: Self Allergies Sulfa (Sulfonamide Antibiotics) Allergy (Verified 11/20/24 13:34) Swelling Medications ???Medication ???Instructions ???Recorded ???Confirmed ???Type hydroxyzine HCl 10 mg tablet 10 mg PO DAILY PRN allergic 11/20/24 Rx symptoms #90 tabs montelukast 10 mg tablet 10 mg PO DAILY 01/26/23 11/20/24 H istory albuterol sulfate 90 mcg/actuation See Rx Instructions .Route 02/1211/20/24 Rx aerosol inhaler .COMPLEX #8.5 ea levothyroxine 112 mcg tablet See Rx Instructions .Route 3 11/20/24 Rx .COMPLEX #90 tabs levocetirizine 5 mg tablet See Rx Instructions .Route 3 11/20/24 Rx .COMPLEX #90 tabs atorvastatin 10 mg tablet (Lipitor) 10 mg PO DAILY 3 months #90 tab s 04/05/24 11/20/24 Rx amlodipine 5 mg tablet See Rx Instructions .Route 4 11/20/24 Rx .COMPLEX #90 tabs clonazepam 0.5 mg tablet 0.5 mg PO BID #60 tabs 09/10/24 Rx venlafaxine 150 mg 150 mg PO DAILY #90 caps 09/10/24 11/20/24 Rx capsule,extended release 24 hr methylphenidate HCl 5 mg tablet 5 mg PO QAM 30 days #30 tabs 11/2011/20/24 Rx PFSH Medical History (Updated 11/20/24 @ 14:[address] Merrick Puga DO) ADHD Situational anxiety Restless leg Major depressive disorder Hypertension Dysplasia of cervix, low grade (KHRIS 1) Anxiety and depression Abnormal Pap smear of cervix Hyperlipidemia Elevated blood pressure reading Health care maintenance history of removal of cervical hardware Feeding by G-tube Chronic neck pain Zenkers diverticulum Fibromyalgia Depression Hypothyroidism Trigger thumb of left hand Trigger thumb of right hand Carpal tunnel syndrome, right Surgical History History of endometrial ablation History of right oophorectomy History of cholecystectomy History of neck surgery Social History Smoking Status: Current every day smoker alcohol intake: current alcohol intake frequency: holidays/special occasions only substance use type: marijuana and other details: medical card caffeine: Yes what type of physical activity do you participate in: none seatbelt use: always do you feel safe at home: Yes additional social history: Kadi Moser HPI History of Present Illness History provided by: patient HPI: Sandhya Moser is a 64 year old female who presents today for follow up evaluation. Patient reports that she has been terrible. Son came home for 2 weeks over [place] and she really enjoyed having him visit. Continues to have some significant interpersonal concerns. Feels like her anxiety has been flaring her fibromyalgia pain. Has been taking clonazepam intermittently. Will be going to [place] in December with her Aunt and sister in law. Feels like her motivation is somewhat low. Patient reports that she procrastinates and has for a prolonged period. Generally has difficulty with focusing no tasks, and easily feels overwhelmed. Unsure how much benefit effexor provides. Denies any SI or HI or AVH. Review of Systems Constitutional Denies: fever(s), chills, change in weight or fatigue Eyes Denies: change in vision or blurry vision Ears, Nose, Mouth, Throat Denies: throat pain, neck pain or change in hearing Cardiovascular Denies: chest pain, palpitations or dyspnea Respiratory Denies: dyspnea, cough or wheezing Gastrointestinal Denies: abdominal pain, nausea, vomiting, diarrhea or constipation Genitourinary Denies: dysuria or urinary frequency Musculoskeletal Reports: other (Restless legs/leg cramping); Denies: back pain, neck pain, joint pain or muscle weakness Integumentary/Breast Denies: rash or new lesions Neurological Denies: headache(s), dizziness or confusion Endocrine Denies: fatigue or excessive sweating Hematologic/Lymphati c Denies: easy bruising or easy bleeding Allergic/Immunologic Denies: wheezing Exam Mental Status Exam - Psych Appearance casually dressed and well kempt Attitude engaged Activity/Motor Behavior appropriate eye contact and fidgeting Speech regular rate, regular volume and regular prosody Mood depressed, anxious (more content not included)... [facility] MR/BMS.BPon 11-06-2024 MR/BMS.BP [facility] [address], [address] [place] [address] OFFICE VISIT Date of Service: 11/06/24 MR#: [id number] Acct: [id number] Name: SANDHYA MOSER KINA Rep #: [id number] : 1960 Provider: JOHN kahn Age/Sex: 64/F [place] [facility] [place] Status: Signed Intake Vital Signs 09/10/24 14:08 10/31/24 07:40 11/06/24 17:17 Height 5 ft 1 in 5 ft 1 in 5 ft 1 in BP Intake Visit Reasons: Follow up Allergies Sulfa (Sulfonamide Antibiotics) Allergy (Verified 09/10/24 14:06) Swelling [facility] Medical History (Updated 06/04/24 @ 15:[address] Merrick Puga, ) Situational anxiety Restless leg Major depressive disorder Hypertension Dysplasia of cervix, low grade (KHRIS 1) Anxiety and depression Abnormal Pap smear of cervix Hyperlipidemia Elevated blood pressure reading Health care maintenance history of removal of cervical hardware Feeding by G-tube Chronic neck pain Zenkers diverticulum Fibromyalgia Depression Hypothyroidism Trigger thumb of left hand Trigger thumb of right hand Carpal tunnel syndrome, right Surgical History History of endometrial ablation History of right oophorectomy History of cholecystectomy History of neck surgery Social History Smoking Status: Current every day smoker alcohol intake: current alcohol intake frequency: holidays/special occasions only substance use type: marijuana and other details: medical card caffeine: Yes what type of physical activity do you participate in: none seatbelt use: always do you feel safe at home: Yes additional social history: Kadi Moser HPI History of Present Illness HPI: Sandhya Moser is a 64 year-old female returning for therapy. She arrived tearful reporting stressors involving her but identified wanting to work on skills versus discussing it. Initially, she presented as irritated. Worked on DBT distress tolerance skill Distract with ACCEPTS providing handout and psychoeducation on use of activities, contributing, comparisons, emotions, push away, thoughts, and sensations for distraction. Provided psychoeducation on when to utilize distraction (when problems cannot be solved, when problems cannot be solved until later, and when not in [facility]). Sandhya had difficulty applying Distract with ACCEPTS at first but eventually was able to do so. Her mood became less distressed as the session progressed. Sandhya is willing to track her use of skills including distress before and after implementing Distract with ACCEPTS. No SI. Future-oriented. Exam Mental Status Exam - Psych Appearance casually dressed and well kempt Attitude engaged and other (initially irritable) Activity/Motor Behavior appropriate eye contact and fidgeting Speech regular rate, regular volume and regular prosody Mood depressed, anxious and irritable Affect full range Thought Process coherent and goal directed Thought Content no delusions and no hallucinations Suicidal Ideation none Homicidal Ideation none Attention impaired (Per pt. report.) Concentration impaired (Per pt. report.) Sensorium/Orientatio n alert and oriented x3 Memory/Cognition intact Insight fair Judgement good Assessment Plan Assessment Plan (1) Major depressive disorder: Plan: therapy using CBT, DBT, and ACT interventions to address thought patterns contributing to depressive symptoms and teach coping skills. Continued psychiatric services to monitor depressive symptoms and medication effectiveness. Pt. to call 911, call suicide prevention hotline, or go to ER if experiencing suicidal ideation with plan and intent and/or feel unable to ensure own safety. Plan TREATMENT PLAN (10/16/2024) Goal 1 - Develop healthy thought patterns and beliefs about self, others, and the world that reduce depressive symptoms and negative relational experiences AEB pt. report. Objective 1 - Will learn and apply problem-solving skills to conflicts in daily living. Intervention 1 - Teach at least 3 problem-solving skills and use role play and modeling to apply to daily life situations. Objective 1 - Will learn and apply DBT skills in daily living to reduce emotional distress and increase positive interactions with others. Intervention 1 - Teach at least 3 distress tolerance skills discussing how to apply to daily living. Intervention 2 - Teach at least 3 interpersonal effective skills discussing how to apply to daily living. Visit Details Duration of visit (minutes): 60 Duration of counseling (minutes): 60 Total time (minutes): 60 Type of visit: psychotherapy and [id number] Coding [place] [address] PSYTX W PT 60 MINUTES Patient Type Established Diagnoses Major depressive di (more content not included)... [facility] MR/BMS.BPon 10-31-2024 MR/BMS.BP [facility] [address], [address] [place] [id number] OFFICE VISIT Date of Service: 10/30/24 MR#: [id number] Acct: [id number] Name: SANDHYA MOSER Rep #: [id number] : 1960 Provider: JOHN kahn Age/Sex: 64/F [place] [facility] [place] Status: Signed Intake Vital Signs 09/10/24 14:08 10/16/24 17:07 10/31/24 07:40 Height 5 ft 1 in 5 ft 1 in 5 ft 1 in BP Intake Visit Reasons: follow up Allergies Sulfa (Sulfonamide Antibiotics) Allergy (Verified 09/10/24 14:06) Swelling [facility] Medical History (Updated 06/04/24 @ 15:[address] Merrick Puga DO) Situational anxiety Restless leg Major depressive disorder Hypertension Dysplasia of cervix, low grade (KHRIS 1) Anxiety and depression Abnormal Pap smear of cervix Hyperlipidemia Elevated blood pressure reading Health care maintenance history of removal of cervical hardware Feeding by G-tube Chronic neck pain Zenkers diverticulum Fibromyalgia Depression Hypothyroidism Trigger thumb of left hand Trigger thumb of right hand Carpal tunnel syndrome, right Surgical History History of endometrial ablation History of right oophorectomy History of cholecystectomy History of neck surgery Social History Smoking Status: Current every day smoker alcohol intake: current alcohol intake frequency: holidays/special occasions only substance use type: marijuana and other details: medical card caffeine: Yes what type of physical activity do you participate in: none seatbelt use: always do you feel safe at home: Yes additional social history: Kadi Moser HPI History of Present Illness HPI: Pt. is a 64 year-old female returning for therapy. She reported recovering from having been physically sick. Pt. identified increased depressive symptoms after spending holidays with older son and son returning home, which is far away and difficult to visit. She discussed difficulty completing tasks due to procrastination and perfectionism. Encouraged verbalization of emotions while providing support. Normalized emotions. Provided psychoeducation on perfectionism and task completion including setting goals or to-do lists small to build confidence and momentum and 10 minute rule to overcome procrastination. Explored how pt. could implement into daily living. Worked on DBT distress tolerance skills. Provided handout and psychoeducation on difference between distress tolerance skills and typical coping skills. Discussed benefit of distress tolerance skills in crisis situations. No reports of SI. Pt.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 L801.2600, L3300.1750, L501.96646, L500.4050, L506.1000, L506.0400, L100.0100 ####[facility] [address] [place], [place], [id number] Absolute Neut 4.0 X10 3/uL Normal 2.0-7.7 [facility] Comment on above: Performed By: #### L 3100.5310, L501.9520, L801.2600, L3300.1750, L501.86931, L500.4050, L506.1000, L506.0400, L100.0100 ####[facility] [address] [place], [address] Basophils/100 WBC (Bld) 0.6 % Normal 0-1 [facility] Comment on above: Performed By: #### L 3100.5310, L501.9520, L801.2600, L3300.1750, L501.68421, L500.4050, L506.1000, L506.0400, L100.0100 ####[facility] [address] [place], [address] Eosinophils/100 WBC (Bld) 2.2 % Normal 0-5 [facility] Comment on above: Performed By: #### L 3100.5310, L501.9520, L801.2600, L3300.1750, L501.53386, L500.4050, L506.1000, L506.0400, L100.0100 ####[facility] [address] [place], [address] Erythrocyte distribution width (RBC) [Ratio] 13.3 % Normal 11.6-14.6 [facility] Comment on above: Performed By: #### L 3100.5310, L501.9520, L801.2600, L3300.1750, L501.38875, L500.4050, L506.1000, L506.0400, L100.0100 ####[facility] [address] [place], [address] Hematocrit (Bld) [Volume fraction] 42.5 % Normal 37-47 [facility] Comment on above: Performed By: #### L 3100.5310, L501.9520, L801.2600, L3300.1750, L501.61907, L500.4050, L506.1000, L506.0400, L100.0100 ####[facility] [address] [place], [address] Hemoglobin (Bld) [Mass/Vol] 13.4 g/dL Normal 12.0-15.0 [facility] Comment on above: Performed By: #### L 3100.5310, L501.9520, L801.2600, L3300.1750, L501.68381, L500.4050, L506.1000, L506.0400, L100.0100 ####[facility] [address] [place], [address] IG% 0.300 Normal 0.0-0.9 [facility] Comment on above: Result Comment: IG% - Immature Granulocytes (promyelocytes, myelocytes and metamyelocytes) > 1% indicates that a LEFT SHIFT is Present. Performed By: #### L 3100.5310, L501.9520, L801.2600, L3300.1750, L501.32158, L500.4050, L506.1000, L506.0400, L100.0100 ####[facility] [address] [place], [address] Lymphocytes/100 WBC (Bld) 44.1 % High 19-41 [facility] Comment on above: Performed By: #### L 3100.5310, L501.9520, L801.2600, L3300.1750, L501.33347, L500.4050, L506.1000, L506.0400, L100.0100 ####[facility] [address] [place], [address] MCH (RBC) [Entitic mass] 29.0 pg Normal 27.0-32.0 [facility] Comment on above: Performed By: #### L 3100.5310, L501.9520, L801.2600, L3300.1750, L501.30493, L500.4050, L506.1000, L506.0400, L100.0100 ####[facility] [address] [place], [address] MCHC (RBC) [Mass/Vol] 31.5 g/dL Low 32-36 [facility] Comment on above: Performed By: #### L 3100.5310, L501.9520, L801.2600, L3300.1750, L501.19343, L500.4050, L506.1000, L506.0400, L100.0100 ####[facility] [address] [place], [address] MCV (RBC) [Entitic vol] 92.0 fL Normal 81-99 [facility] Comment on above: Performed By: #### L 3100.5310, L501.9520, L801.2600, L3300.1750, L501.76578, L500.4050, L506.1000, L506.0400, L100.0100 ####[facility] [address] [place], [address] Monocytes/100 WBC (Bld) 8.4 % Normal 0-10 [facility] Comment on above: Performed By: #### L 3100.5310, L501.9520, L801.2600, L3300.1750, L501.93558, L500.4050, L506.1000, L506.0400, L100.0100 ####[facility] [address] [place], [address] Neutrophils/100 WBC (Bld) 44.4 % Low 47-70 [facility] Comment on above: Performed By: #### L 3100.5310, L501.9520, L801.2600, L3300.1750, L501.44967, L500.4050, L506.1000, L506.0400, L100.0100 ####[facility] [address] [place], [address] Nucleated RBC (Bld) [#/Vol] 0 10*3/uL Normal 0-5 [facility] Comment on above: Performed By: #### L 3100.5310, L501.9520, L801.2600, L3300.1750, L501.43479, L500.4050, L506.1000, L506.0400, L100.0100 ####[facility] [address] [place], [address] Platelet mean volume (Bld) [Entitic vol] 11.1 fL Normal 6.2-12.0 [facility] Comment on above: Performed By: #### L 3100.5310, L501.9520, L801.2600, L3300.1750, L501.16171, L500.4050, L506.1000, L506.0400, L100.0100 ####[facility] [address] [place], [address] Platelets (Bld) [#/Vol] 247 10*3/uL Normal 150-450 [facility] Comment on above: Performed By: #### L 3100.5310, L501.9520, L801.2600, L3300.1750, L501.82670, L500.4050, L506.1000, L506.0400, L100.0100 ####[facility] [address] [place], [address] RBC (Bld) [#/Vol] 4.62 10*6/uL Normal 4.2-5.4 [facility] Comment on above: Performed By: #### L 3100.5310, L501.9520, L801.2600, L3300.1750, L501.98773, L500.4050, L506.1000, L506.0400, L100.0100 ####[facility] [address] [place], [place], [id number] RDW SD 45.0 fl High 35.1-43.9 [facility] Comment on above: Performed By: #### L 3100.5310, L501.9520, L801.2600, L3300.1750, L501.75111, L500.4050, L506.1000, L506.0400, L100.0100 ####[facility] [address] [place], [place], [id number] WBC (Bld) [#/Vol] 8.9 10*3/uL Normal 4.4-11.0 [facility] Comment on above: Performed By: #### L 3100.5310, L501.9520, L801.2600, L3300.1750, L501.09041, L500.4050, L506.1000, L506.0400, L100.0100 ####[facility] [address] [place], [place], [phone] Comprehensive Metabolic Prof ilon 03-25-2024 Albumin [Mass/Vol] 4.1 g/dL Normal 3.2-5.0 [facility] Comment on above: Order Comment: N Performed By: #### L 3100.5310, L501.9520, L801.2600, L3300.1750, L501.16878, L500.4050, L506.1000, L506.0400, L100.0100 ####[facility] [address] [place], [place], [phone] Albumin/Globulin [Mass ratio] 1.2 {ratio} Normal 0.9-2.4 [facility] Comment on above: Order Comment: N Performed By: #### L 3100.5310, L501.9520, L801.2600, L3300.1750, L501.47565, L500.4050, L506.1000, L506.0400, L100.0100 ####[facility] [address] [place], [address] ALK P 130 U/L High 45-117 [facility] Comment on above: Order Comment: N Performed By: #### L 3100.5310, L501.9520, L801.2600, L3300.1750, L501.97165, L500.4050, L506.1000, L506.0400, L100.0100 ####[facility] [address] [place], [place], [id number] ALT [Catalytic activity/Vol] 33 U/L Normal 13-56 [facility] Comment on above: Order Comment: N Performed By: #### L 3100.5310, L501.9520, L801.2600, L3300.1750, L501.24978, L500.4050, L506.1000, L506.0400, L100.0100 ####[facility] [address] [place], [place], [id number] AST [Catalytic activity/Vol] 24 U/L Normal 15-37 [facility] Comment on above: Order Comment: N Performed By: #### L 3100.5310, L501.9520, L801.2600, L3300.1750, L501.73308, L500.4050, L506.1000, L506.0400, L100.0100 ####[facility] [address] [place], [address] Bilirubin [Mass/Vol] 0.50 mg/dL Normal 0.20-1.00 [facility] Comment on above: Order Comment: N Result Comment: For patients on eltrombopag therapy, use of Dimension [place] TBIL is not recommended. Performed By: #### L 3100.5310, L501.9520, L801.2600, L3300.1750, L501.79566, L500.4050, L506.1000, L506.0400, L100.0100 ####[facility] [address] [place], [address] BUN/CRE 18.4 RATIO Normal 10-20 [facility] Comment on above: Order Comment: N Performed By: #### L 3100.5310, L501.9520, L801.2600, L3300.1750, L501.32704, L500.4050, L506.1000, L506.0400, L100.0100 ####[facility] [address] [place], [address] CA,Total 9.3 mg/dL Normal 8.5-10.1 [facility] Comment on above: Order Comment: N Performed By: #### L 3100.5310, L501.9520, L801.2600, L3300.1750, L501.47073, L500.4050, L506.1000, L506.0400, L100.0100 ####[facility] [address] [place], [address] Chloride [Moles/Vol] 106 mmol/L Normal 98-107 [facility] Comment on above: Order Comment: N Performed By: #### L 3100.5310, L501.9520, L801.2600, L3300.1750, L501.15337, L500.4050, L506.1000, L506.0400, L100.0100 ####[facility] [address] [place], [address] CO2 [Moles/Vol] 25.0 mmol/L Normal 21.0-32.0 [facility] Comment on above: Order Comment: N Performed By: #### L 3100.5310, L501.9520, L801.2600, L3300.1750, L501.32538, L500.4050, L506.1000, L506.0400, L100.0100 ####[facility] [address] [place], [address] Creatinine [Mass/Vol] 0.71 mg/dL Normal 0.55-1.02 [facility] Comment on above: Order Comment: N Result Comment: The validity of the calculated GFR GFRAA in patients over 70 years has not been determined. Clinical correlation is essential. Performed By: #### L 3100.5310, L501.9520, L801.2600, L3300.1750, L501.93510, L500.4050, L506.1000, L506.0400, L100.0100 ####[facility] [address] [place], [address] EST GFR - AA 108 mL/min Normal >60 [facility] Comment on above: Order Comment: N Result Comment: Afri can [place] GFR Calc Performed By: #### L 3100.5310, L501.9520, L801.2600, L3300.1750, L501.58934, L500.4050, L506.1000, L506.0400, L100.0100 ####[facility] [address] [place], [place], [phone]([phone] GAP 6 Normal 5-15 [facility] Comment on above: Order Comment: N Performed By: #### L 3100.5310, L501.9520, L801.2600, L3300.1750, L501.78716, L500.4050, L506.1000, L506.0400, L100.0100 ####[facility] [address] [place], [phone] GFR/1.73 sq M.predicted among non-blacks MDRD (S/P/Bld) [Vol rate/Area] 89 mL/min/{1.73_m2} Normal >60 [facility] Comment on above: Order Comment: N Result Comment: Non- GFR Calc Performed By: #### L 3100.5310, L501.9520, L801.2600, L3300.1750, L501.00848, L500.4050, L506.1000, L506.0400, L100.0100 ####[facility] [address] [place], [address] Globulin (S) [Mass/Vol] 3.3 g/dL Normal 2.2-4.2 [facility] Comment on above: Order Comment: N Performed By: #### L 3100.5310, L501.9520, L801.2600, L3300.1750, L501.92296, L500.4050, L506.1000, L506.0400, L100.0100 ####[facility] [address] [place], [address] Glucose [Mass/Vol] 90 mg/dL Normal 74-106 [facility] Comment on above: Order Comment: N Performed By: #### L 3100.5310, L501.9520, L801.2600, L3300.1750, L501.23273, L500.4050, L506.1000, L506.0400, L100.0100 ####[facility] [address] [place], [address] Potassium [Moles/Vol] 3.9 mmol/L Normal 3.5-5.1 [facility] Comment on above: Order Comment: N Performed By: #### L 3100.5310, L501.9520, L801.2600, L3300.1750, L501.50324, L500.4050, L506.1000, L506.0400, L100.0100 ####[facility] [address] [place], [address] Sodium [Moles/Vol] 137 mmol/L Normal 136-145 [facility] Comment on above: Order Comment: N Performed By: #### L 3100.5310, L501.9520, L801.2600, L3300.1750, L501.35412, L500.4050, L506.1000, L506.0400, L100.0100 ####[facility] [address] [place], [address] T PROT 7.4 g/dL Normal 6.4-8.2 [facility] Comment on above: Order Comment: N Performed By: #### L 3100.5310, L501.9520, L801.2600, L3300.1750, L501.16521, L500.4050, L506.1000, L506.0400, L100.0100 ####[facility] [address] [place], [address] Urea nitrogen [Mass/Vol] 13 mg/dL Normal 7-18 [facility] Comment on above: Order Comment: N Performed By: #### L 3100.5310, L501.9520, L801.2600, L3300.1750, L501.64376, L500.4050, L506.1000, L506.0400, L100.0100 ####[facility] [address] [place], [address] Estradiolon 03-25-2024 ESTRADIOL 15.1 pg/mL Normal [facility] Comment on above: Order Comment: N Result Comment: NORM AL REFERENCE RANGES FEMALE FOLLICULAR 21.4 - 164.8 pg/mL MID-CYCLE PEAK 49.9 - 367.2 pg/mL LUTEAL 40.2 - 259.0 pg/mL POST-MENOPAUSAL ON MHT <11.0 - 462.1 pg/mL NOT ON MHT <11.0 - 58.3 pg/mL MALE <11.0 - 52.5 pg/mL NOTE: [employer] HAS CONFIRMED THE DRUG FULVETRANT (FASLODEX) MAY CAUSE FALSELY ELEVATED ESTRADIOL RESULTS WHEN USING THIS TEST METHOD. IF PATIENT IS TAKING FULVESTRANT AN ALTERNATIVE METHOD SHOULD BE USED TO DETERMINE ESTRADIOL CONCENTRATION. Performed By: #### L 3100.5310, L501.9520, L801.2600, L3300.1750, L501.04378, L500.4050, L506.1000, L506.0400, L100.0100 ####[facility] [address] [place], [place], [phone] Free T3on 03-25-2024 Free T3 [Mass/Vol] 2.3 pg/mL Normal 2.18-3.98 [facility] Comment on above: Order Comment: N Performed By: #### L 3100.5310, L501.9520, L801.2600, L3300.1750, L501.62827, L500.4050, L506.1000, L506.0400, L100.0100 ####[facility] [address] [place], [place], [phone] T4 Free Directon 03-25-2024 T4 FREE DIRECT 1.14 ng/dL Normal 0.76-1.46 [facility] Comment on above: Order Comment: N Performed By: #### L 3100.5310, L501.9520, L801.2600, L3300.1750, L501.52169, L500.4050, L506.1000, L506.0400, L100.0100 ####[facility] [address] [place], [place], [id number] Thyroid Stim Hormone (TSH)on 03-25-2024 TSH 6.79 uIU/mL High 0.358-3.74 [facility] Comment on above: Order Comment: N Performed By: #### L 3100.5310, L501.9520, L801.2600, L3300.1750, L501.19620, L500.4050, L506.1000, L506.0400, L100.0100 ####[facility] [address] [place], [place], [id number] Vitamin D,25 Hydroxyon 03-25 Vitamin D 25-OH 17.0 ng/mL Normal [facility] Comment on above: Result Comment: Tita min D 25(OH) Status Range Deficiency <20 ng/mL (50nmol/L) Insufficiency 20 - 30 ng/mL (50 - 75 nmol/L) Sufficiency 30 - 100 ng/mL (75 - 250 nmol/L) Toxicity >100 ng/mL (>250 nmol/L) Performed By: #### L 3100.5310, L501.9520, L801.2600, L3300.1750, L501.99585, L500.4050, L506.1000, L506.0400, L100.0100 ####[facility] [address] [place], [address] Absolute lymphocyte countOrd ered By: Dr. Oneill on 11-03-2022 Lymphocytes Auto (Unsp spec) [#/Vol] 3.08 10*3/uL 0.83-4.51 [facility] Basophil percentageOrdered B y: Dr. Oneill on 11-03-2022 Basophils/100 WBC (Bld) 0.4 % 0-1 [facility] Bilirubin [Mass/Vol] 0.40 mg/dL 0.20-1.00 [facility] Comment on above: For patients on eltr ombopag therapy, use of Dimension [place] TBIL is not recommended. Chloride [Moles/Vol] 112 mmol/L 98-107 [facility] Cholesterol [Mass/Vol] 336 mg/dL <200 [facility] Comment on above: <200 mg/dL Desirable 200-240 mg/dL Borderline >240 mg/dL High Risk Eosinophils/100 WBC (Bld) 2.6 % 0-5 [facility] Glucose [Mass/Vol] 107 mg/dL 74-106 [facility] Comment on above: Fasting Glucose resu lt from 100 to 125 mg/dL suggests IMPAIRED HOMEOSTASIS per A.D.A. criteria. Neutrophils (Bld) [#/Vol] 5.0 10*3/uL 2.0-7.7 [facility] Neutrophils/100 WBC (Bld) 55.0 % 47-70 [facility] Potassium [Moles/Vol] 4.1 mmol/L 3.5-5.1 [facility] Protein [Mass/Vol] 7.4 g/dL 6.4-8.2 [facility] Sodium [Moles/Vol] 139 mmol/L 136-145 [facility] Triglyceride [Mass/Vol] 179 mg/dL <199 [facility] Comment on above: The drugs N-Acetylcy steine and Metamizole may falsely depress this assay.Serum Triglycerides Reference Interval Normal <150 mg/dL Borderline high 150 - 199 mg/dL High 200 - 499 mg/dL Very High > or = 500 mg/dL WBC (Bld) [#/Vol] 9.1 10*3/uL 4.4-11.0 [facility] Blood erythrocytes count (nu mber/volume)Ordered By: Dr. Oneill on 11-03-2022 RBC (Bld) [#/Vol] 4.67 10*6/uL 4.2-5.4 [facility] Blood hemoglobin measurement (mass/volume)Ordered By: Dr. Oneill on 11-03-2022 Hemoglobin (Bld) [Mass/Vol] 13.7 g/dL 12.0-15.0 [facility] Blood lymphocytes/100 leukoc ytesOrdered By: Dr. Oneill on 11-03-2022 Lymphocytes/100 WBC (Bld) 33.7 % 19-41 [facility] Blood monocytes/100 leukocyt esOrdered By: Dr. Oneill on 11-03-2022 Monocytes/100 WBC (Bld) 8.1 % 0-10 [facility] Blood platelet mean volumeOr dered By: Dr. Oneill on 11-03-2022 Platelet mean volume (Bld) [Entitic vol] 11.1 fL 6.2-12.0 [facility] Determination of erythrocyte mean corpuscular volume (MCV)Ordered By: Dr. Oneill on 11-03-2022 MCV (RBC) [Entitic vol] 92.7 fL 81-99 [facility] Hematocrit Auto (Bld) [Volum e fraction]Ordered By: Dr. Oneill on 11-03-2022 Hematocrit (Bld) [Volume fraction] 43.3 % 37-47 [facility] - Chemistry and C hemistry - challengeOrdered By: Dr. Oneill on 11-03-2022 ALP [Catalytic activity/Vol] 101 U/L 45-117 [facility] ALT [Catalytic activity/Vol] 27 U/L 13-56 [facility] CO2 [Moles/Vol] 23.0 mmol/L 21.0-32.0 [facility] Globulin (S) [Mass/Vol] 3.4 g/dL 2.2-4.2 [facility] Urea nitrogen/Creatinine [Mass ratio] 23.2 mg/mg 10-20 [facility] - Hematology and Cell countsOrdered By: Dr. Oneill on 11-03-2022 Erythrocyte distribution width (RBC) [Entitic vol] 51.6 fL 35.1-43.9 [facility] Erythrocyte distribution width (RBC) [Ratio] 15.0 % 11.6-14.6 [facility] Immature granulocytes/100 WBC (Bld) 0.200 % 0.0-0.9 [facility] Comment on above: IG% - Immature Granu locytes (promyelocytes, myelocytes and metamyelocytes) > 1% indicates that a LEFT SHIFT is Present. MCH (RBC) [Entitic mass] 29.3 pg 27.0-32.0 [facility] Nucleated RBC/100 WBC (Bld) [Ratio] 0 % 0-5 [facility] MCHC Auto (RBC) [Mass/Vol]Or dered By: Dr. Oneill on 11-03-2022 MCHC (RBC) [Mass/Vol] 31.6 g/dL 32-36 [facility] No Panel InformationOrdered By: Dr. Oneill on 11-03-2022 Estimated GFR (MDRD) Amer 97 mL/min >60 [facility] Comment on above: GFR Calc Estimated GFR (MDRD) Non-Af Amer 80 mL/min >60 [facility] Comment on above: Non- GFR Calc Thyroid Stimulating Hormone (TSH) 53.70 uIU/mL 0.358-3.74 [facility] Platelets bldOrdered By: Dr. Oneill on 11-03-2022 Platelets (Bld) [#/Vol] 283 10*3/uL 150-450 [facility] Serum or plasma albumin brian urement (mass/volume)Ordered By: Dr. Oneill on 11-03-2022 Albumin [Mass/Vol] 4.0 g/dL 3.2-5.0 [facility] Serum or plasma albumin/glob ulin mass ratioOrdered By: Dr. Oneill on 11-03-2022 Albumin/Globulin [Mass ratio] 1.2 {ratio} 0.9-2.4 [facility] Serum or plasma calcium brian urement (mass/volume)Ordered By: Dr. Oneill on 11-03-2022 Calcium [Mass/Vol] 9.0 mg/dL 8.5-10.1 [facility] Serum or plasma cholesterol in HDL measurement (mass/volume)Ordered By: Dr. Oneill on 11-03-2022 Cholesterol in HDL [Mass/Vol] 61 mg/dL >40 [facility] Comment on above: The drugs N-Acetylcy steine and Metamizole may falsely depress this assay. Reference Range HDL <40 mg/dL Low HDL Cholesterol HDL >or= 60 mg/dL High HDL Cholesterol Serum or plasma cholesterol in VLDL measurement (mass/volume)Ordered By: Dr. Oneill on 11-03-2022 Cholesterol in VLDL [Mass/Vol] 36 mg/dL 5-40 [facility] Serum or plasma creatinine m easurement (mass/volume)Ordered By: Dr. Oneill on 11-03-2022 Creatinine [Mass/Vol] 0.78 mg/dL 0.55-1.02 [facility] Comment on above: The validity of the calculated GFR & GFRAA in patients over 70 years has not been determined. Clinical correlation is essential. Serum or plasma low density lipoprotein (LDL) cholesterol measurement (mass/volume)Ordered By: Dr. Oneill on 11-03-2022 Cholesterol in LDL [Mass/Vol] 239 mg/dL 0-130 [facility] Serum or plasma urea nitroge n measurement (mass/volume)Ordered By: Dr. Oneill on 11-03-2022 Urea nitrogen [Mass/Vol] 18 mg/dL 7-18 [facility] Thin prep Papanicolaou smear with manual screeningOrdered By: Dr. Oneill on 01-13-2023 Thin prep Papanicolaou smear with manual screening 19 U/L 15-37 [facility] Thin prep Papanicolaou smear with manual screening 4 5-15 [facility] 08-18-2022 [facility] Letter Text Letter Text Normal [facility] Vital Signs Date Time Vital Sign Value Performing Clinician Kendra murphy 11-03-2022 09:23-0500 Body height 151.[address] Jb Oneill Work Phone: [facility] 11-03-2022 09:23-0500 Body mass index (BMI) [Ratio] 29.5 kg/m2 Dr. Jb Oneill Work Phone: [facility] 11-03-2022 09:23-0500 Body temperature 97.2 [degF] Dr. Jb Oneill Work Phone: [facility] 11-03-2022 09:23-0500 Body weight 67.[address] Jb Oneill Work Phone: [facility] 11-03-2022 09:23-0500 Diastolic blood pressure 82 mm[Hg] Dr. Jb Oneill Work Phone: [facility] 11-03-2022 09:23-0500 Heart rate 75 /min Dr. Jb Oneill Work Phone: [facility] 11-03-2022 09:23-0500 Respiratory rate 16 /min Dr. Jb Oneill Work Phone: [facility] 11-03-2022 09:23-0500 SaO2% (BldA) [Mass fraction] 97 % Dr. Jb Oneill Work Phone: [facility] 11-03-2022 09:23-0500 Systolic blood pressure 140 mm[Hg] Dr. Jb Oneill Work Phone: [facility] Encounters Encounter Date Encounter Type Care Provider Facility Start: 03-19-2025 End: 03-19-2025 ambulatory Gayathri Malys Facility[facility] Start: 03-12-2025 End: 03-12-2025 ambulatory Gayathri Malys [facility] Start: 02-26-2025 End: 02-26-2025 ambulatory Gayathri Malys [facility] Start: 02-23-2025 End: 02-23-2025 ambulatory Gayathri Malys [facility] Start: 02-17-2025 End: 02-17-2025 ambulatory Gayathri Malys [facility] Start: 02-17-2025 End: 02-17-2025 ambulatory Gayathri Malys [facility] Start: 02-13-2025 End: 02-13-2025 ambulatory Gayathri Malys [facility] Start: 01-16-2025 End: 01-16-2025 ambulatory Gayathri Malys [facility] Start: 12-26-2024 End: 12-26-2024 ambulatory Gayathri Malys [facility] Start: 12-18-2024 End: 12-18-2024 ambulatory Gayathri Malys [facility] Start: 11-28-2024 End: 11-28-2024 ambulatory Gayathri Malys [facility] Start: 11-20-2024 End: 11-20-2024 ambulatory Gayathri Malys [facility] Start: 11-06-2024 End: 11-06-2024 ambulatory Gayathri Malys [facility] Start: 10-30-2024 End: 10-30-2024 ambulatory Gayathri Malys [facility] Start: 10-27-2024 End: 10-27-2024 ambulatory Gayathri Malys Facility:[facility] Start: 10-16-2024 End: 10-16-2024 ambulatory Gayathri Malys [facility] Start: 10-07-2024 End: 10-07-2024 ambulatory Gayathri Malys [facility] Start: 09-10-2024 End: 09-10-2024 ambulatory Gayathri Malys [facility] Start: 06-04-2024 End: 06-04-2024 ambulatory Gayathri Malys [facility] Start: 03-25-2024 End: 03-25-2024 ambulatory Gayathri Malys Facility:[facility] Start: 11-03-2022 End: 11-03-[address] Jb Oneill Work Phone: [facility] Work Phone: Start: 11-03-2022 End: 11-03-[address] Jb Oneill Work Phone: [facility] Start: 06-17-[address] Jb Oneill Work Phone: [facility] Procedures Date Procedure Procedure Detail Performing Clinician H/O: surgery History of neck surgery Dr. Jb Oneill Work Phone: Payers Date Payer Category Payer Unknown [id number] 2025 Unknown [id number] 2024 Self-pay [id number] 2024 Unknown [id number] 2013 Private Health Insurance [id number] Unknown [id number] 2.16.8 40.1.244903.3.579.2.462 Unknown [id number] 2.16.8 40.1.972244.3.579.2.462 Unknown [id number] 2.16.8 40.1.694373.3.579.2.462 Unknown [id number] 2.16.8 40.1.166640.3.579.2.462 Unknown [id number] 2.16.8 40.1.366551.3.579.2.462 Unknown [id number] 2.16.8 40.1.058996.3.579.2.462 Unknown [id number] 2.16.8 40.1.373585.3.579.2.462 Unknown [id number] 2.16.8 40.1.161514.3.579.2.462 Unknown [id number] 2.16.8 40.1.663087.3.579.2.462 Unknown [id number] 2.16.8 40.1.014851.3.579.2.462 Unknown [id number] 2.16.8 40.1.939212.3.579.2.462 Unknown [id number] 2.16.8 40.1.852703.3.579.2.462 Unknown [id number] 2.16.8 40.1.335354.3.579.2.462 Unknown [id number] 2.16.8 40.1.634494.3.579.2.462 Unknown [id number] 2.16.8 40.1.819417.3.579.2.462 Unknown [id number] 2.16.8 40.1.345710.3.579.2.462 Unknown [id number] 2.16.8 40.1.995280.3.579.2.462 Unknown [id number] 2.16.8 40.1.614460.3.579.2.462 Unknown [id number] 2.16.8 40.1.622853.3.579.2.462 Unknown [id number] 2.16.8 40.1.578343.3.579.2.462 Social History Date Type Detail Facility [facility]: [facility] Start: 09-23-2020 Cigarettes [facility] Start: 1960 Sex Assigned At Female [facility] Evaluation note Note Date & Type Note Facility Evaluation note Diagnosis Onset Date Anxiety and depression chron ic Hyperlipidemia chronic Hypothyroidism chronic [facility] Work Phone: Summary Purpose Family History No Family History Records FoundNo Family History Records Found Advance Directives No Advanced Directives Records Found Advance Directive Response Recorded Date/ Time Living Will No September 23 1:08pm Power of Mobility Engineer No September 23, 2020 1:08pm Chief Complaint and Reason for Visit Chief Complaint Stress Reason for Visit Anxiety and depressi on Hyperlipidemia Hypothyroidism Additional Source Comments INFORMATION SOURCE (unrecogn ized section and content) DATE CREATED AUTHOR 08/19/2022 [facility] DATE CREATED AUTHOR AUTHOR'S DOT ATION 03/23/2025 [facility] Care Teams (unrecognized sec tion and content) Team Status: Active Member Role Status Dates Dr. Wyatt Carolina MD Family Provider Active Dr. Jb Oneill MD Primary Care Provider Active Team Status: Inactive Member Role Status Dates Dr. Jb Oneill MD Primary Care P godwin, Attending Provider, Referring Provider Active Goals (unrecognized section and content) Goals may be documented in a n alternate section FOR RECORDS PERTAINING TO PATIENTS WHO ARE OR HAVE BEEN ENROLLED IN A CHEMICAL DEPENDENCY/SUBSTANCEABUSE PROGRAM, SOME INFORMATION MAY BE OMITTED. This clinical summary was aggregated from multiple sources. Caution should be exercised in using it in the provision of clinical care. This summary normalizes information from multiple sources, and as a consequence, information in this document may materially change the coding, format and clinical context of patient data. In addition, data may be omitted in some cases. CLINICAL DECISIONS SHOULD BE BASED ON THE PRIMARY CLINICAL RECORDS. [employer] provides no warranty or guarantee of the accuracy or completeness of information in this document.
== END | disposition home or self-care (01) ==
LOC: MTLAB 11:27
PROVIDERS: PCP Family Medicine; Referring Provider Family Medicine; Visit Provider Family Medicine
DX: E03.9 Hypothyroidism, unspecified (principal); E55.9 Vitamin D deficiency, unspecified; M79.10 Myalgia, unspecified site; M25.50 Pain in unspecified joint; Z51.81 Encounter for therapeutic drug level monitoring
CPT/HCPCS: 36415; 80053; 82306; 84439; 84443; 84481; 85025; 85652; 86140

== ENCOUNTER → 2025-08-24 | Outpatient (CLI) | payer OTHER, SELFPAY ==
[2025-08-24 18:21] LABS: Free T3 3.5 pg/mL (2.18-3.98)
== END | disposition home or self-care (01) ==
LOC: MTLAB 14:34
PROVIDERS: PCP Family Medicine; Referring Provider Family Medicine; Visit Provider Family Medicine
DX: E03.9 Hypothyroidism, unspecified (principal)
CPT/HCPCS: 36415; 84439; 84443; 84481